=== PATIENT | female | born 1950 | race Caucasian/White ===

== ENCOUNTER 2020-02-17 09:01 | Outpatient (CLI) | payer MEDICARE, OTHER, SELFPAY ==
[2020-02-17 09:22] LABS: Basophils Absolute Auto 0.1 K/mm3 (0.0-0.1); Basophils Percent Auto 1.1 % (0.2-1.2); Eosinophils Absolute Auto 0.2 K/mm3 (0-0.3); Eosinophils Percent Auto 4.7 % (0-4.4); Hematocrit 39.5 % (37.0-47.0); Hemoglobin 12.9 g/dL (12.0-15.0); Immature Granulocyte Absolute 0.01 K/mm3 (0.00-0.031); Immature Granulocyte Percent A 0.2 % (0-0.5); Lymphocytes Absolute Auto 0.91 K/mm3 (0.9-3.2); Lymphocytes Percent Auto 20.4 % (18.3-44.2); Mean Corpuscular HGB Conc 32.7 g/dl (32-36); Mean Corpuscular Hemoglobin 31.8 pg (26-34); Mean Corpuscular Volume 97.3 fl (80-100); Mean Platelet Volume 9.4 fl (7.4-10.4); Monocytes Absolute Auto 0.6 K/mm3 (0.1-0.6); Neutrophils Absolute Auto 2.7 K/mm3 (1.3-6.7); Neutrophils Percent Auto 60.6 % (45.5-73.1); Platelet Count Result 228 k/mm3 (150-375); Red Blood Count 4.06 M/mm3 (4.2-5.4); Red Cell Distribution Width 13.2 % (11.5-14.5); White Blood Count 4.5 K/mm3 (4.5-10.0)
[2020-02-17 12:02] LABS: Alanine Aminotransferase 17 U/L (4-35); Albumin Level 4.5 g/dL (3.5-5.1); Alkaline Phosphatase 56 U/L (38-126); Aspartate Amino Transferase 28 U/L (14-36); Bilirubin,Total 0.9 mg/dL (0.2-1.3); Blood Urea Nitrogen 20 mg/dL (7-17); Calcium 9.5 mg/dL (8.4-10.2); Carbon Dioxide 26 mmol/L (22-30); Chloride 105 mmol/L (98-107); Cholesterol 167 mg/dL (0-200); Estimated Glomerular Filt Rate > 60; Glucose 89 mg/dL (65-105); HDL Direct 94 mg/dL; Potassium 4.4 mmol/L (3.4-5.0); Sodium 138 mmol/L (137-145); Triglycerides 66 mg/dL (<150)
[2020-02-17 12:13] LABS: LDL Cholesterol Direct 54 mg/dL
[2020-02-20 04:56] LABS: CA 27.29 15 U/mL (<38)
== END 2020-02-17 09:02 | disposition home or self-care (01) ==
PROVIDERS: Internal Medicine Hematology & Oncology; Visit Provider Family Medicine
DX: C50.412 Malignant neoplasm of upper-outer quadrant of left female breast (principal); Z17.0 Estrogen receptor positive status [ER+]; I10 Essential (primary) hypertension; E78.2 Mixed hyperlipidemia
CPT/HCPCS: 36415; 80053; 80061; 85025; 86300

== ENCOUNTER 2020-02-26 10:40 | Outpatient (CLI) | payer MEDICARE, OTHER, SELFPAY ==
--- NOTE | ~2020-02-26 | MM_ITS ---
EXAMINATION: MM screen RT diag LT w stephie HISTORY: Screening right and left diagnostic mammogram, history of left breast cancer TECHNIQUE: Craniocaudal and mediolateral oblique 3-D tomosynthesis images were obtained and synthetic 2-D images were generated. Mediolateral views of the left breast are also obtained. CAD analysis was submitted and interpreted. COMPARISON: 12/03/2018, 11/21/2018, 10/02/2016, 07/10/2014 BREAST PARENCHYMAL COMPOSITION: There are scattered areas of fibroglandular density. FINDINGS: There are lumpectomy changes in the upper outer quadrant of the left breast. There is no ev idence of suspicious mass, calcification, or architectural distortion to suggest malignancy in either breast. A portacatheter projects in the upper right breast. IMPRESSION: 1. Changes of interval lumpectomy in the left breast without mammographic evidence of malignancy. 2. Recommend routine screening mammography in one year and follow-up. BI-RADS Category 2: Benign finding(s). Reviewed, dictated and finalized at location A. IMPRESSION: 1. Changes of interval lumpectomy in the left breast without mammographic evide nce of malignancy. 2. Recommend routine screening mammography in one year and follow-up. BI-RADS Category 2: Benign finding(s).
== END 2020-02-26 10:41 | disposition home or self-care (01) ==
PROVIDERS: Visit Provider Internal Medicine Hematology & Oncology
DX: C50.412 Malignant neoplasm of upper-outer quadrant of left female breast (principal); Z17.0 Estrogen receptor positive status [ER+]; Z12.31 Encounter for screening mammogram for malignant neoplasm of breast
CPT/HCPCS: 77063; 77065; 77067

== ENCOUNTER 2020-03-09 12:54 | Outpatient (CLI) | payer MEDICARE, OTHER, SELFPAY ==
--- NOTE | ~2020-03-09 | DEXA_ITS ---
Bone Density Report Name: Felicitas Mcgovern Age: 69 Sex: Female Ethnicity: White Date of : 1950 Indication: osteopenia; monitoring treatment; cancer; asthma or emphysema; postmenopausal Referring Provider: TIMI RIVERA Study: Bone densitometry was performed. Exam Date: March 09, 2020 Accession number: [id number] Bone Density: Region BMD T-score Z-score Classification AP Spine (L1-L4) 0.921 -1.1 1.0 Osteopenia Femoral Neck (Left) 0.584 -2.4 -0.6 Osteopenia Total Hip (Left) 0.715 -1.9 -0.3 Osteopenia Total Hip Bilateral Avg 0.711 -1.9 -0.4 Osteopenia Femoral Neck (Right) 0.563 -2.6 -0.8 Osteoporosis Total Hip (Right) 0.707 -1.9 -0.4 Osteopenia World Health Organization criteria for BMD impression classify patients as: Normal (T-score at or above -1.0), Osteopenia (T-score between -1.0 and -2.5), or Osteoporosis (T-score at or below -2.5). 10-year Fracture Risk: FRAX not reported because: Some T-score for Spine Total or Hip Total or Femoral Neck at or below -2.5 Treated for osteoporosis Previous Exams: Region Exam Age BMD T-score BMD Change BMD Change Date g/cm2 vs Baseline vs Previous AP Spine(L1-L4) 03/09/2020 69 0.921 -1.1 -0.106(-10.3%) 0.043(4.9%)# 06/26/2013 62 0.878 -1.5 -0.149(-14.5%) -0.042(-4.6%)# 09/05/2010 59 0.920 -1.2 -0.107(-10.4%) -0.107(-10.4%) 04/27/2003 52 1.026 -0.2 Total Hip(Left) 03/09/2020 69 0.715 -1.9 -0.153(-17.6%) -0.007(-0.9%)# 06/26/2013 62 0.722 -1.8 -0.146(-16.9%) -0.064(-8.1%)# 09/05/2010 59 0.786 -1.3 -0.082(-9.5%)* -0.082(-9.5%)* 04/27/2003 52 0.868 -0.6 Total Hip(Right) 03/09/2020 69 0.707 -1.9 -0.130(-15.5%) 0.019(2.8%)# 06/26/2013 62 0.687 -2.1 -0.149(-17.9%) -0.061(-8.2%)# 09/05/2010 59 0.749 -1.6 -0.088(-10.5%) -0.088(-10.5%) 04/27/2003 52 0.837 -0.9 *Denotes significance at 95% confidence level, LSC for AP Spine = 0.022 g/cm2, LSC for Total Hip = 0.027 g/cm2 Clinical Information Provided by Patient: Is being treated for osteoporosis Has used the following medications: Boniva (i.e. ibandronate), Vitamin D, Calcium Has the following medical conditions: Asthma or Emphysema, Cancer Patient maximum height was 64 Menopause Age: 49 No regular weight bearing exercise Drinks caffeinated beverages Onset of menses at age 12 Number of children 2 Impression: The patient has osteoporosis, based on the Right Femoral Neck T-score. No signifi
== END 2020-03-09 12:55 | disposition home or self-care (01) ==
PROVIDERS: PCP Family Medicine; Visit Provider Family Medicine
DX: M81.0 Age-related osteoporosis without current pathological fracture (principal); M85.89 Other specified disorders of bone density and structure, multiple sites
CPT/HCPCS: 77080

== ENCOUNTER 2020-06-12 08:18 | Outpatient (CLI) | payer MEDICARE, OTHER, SELFPAY ==
--- NOTE | ~2020-06-12 | CT_ITS ---
EXAMINATION: CT lung screening EXAM DATE: 06/12/2020 08:54 INDICATION: Personal history of nicotine dependence. TECHNIQUE: Spiral low dose CT of the chest without contrast. Axial, coronal and sagittal images were reviewed. The dose-length product (DLP) for this examination was 60.02 mGy-cm. The exposure was ta ilored according to patient size (auto mA exposure control), and iterative reconstruction (ASIR) was used as additional dose reduction technique. Comparison is made to prior examination from 12/11/2017. FINDINGS: There is moderate emphysema and hyperinflation. Mild bronchiectasis. Calcified right lower lobe granuloma. Noncalcified 3 mm left upper lobe opacity on image #26. Tracheobronchial tree is pat ent. There is no mediastinal, hilar or axillary lymphadenopathy. Trace pericardial effusion. The re is no pneumothorax. Heart normal in size. There is mild coronary arterial calcification, arter ial sclerosis. Cholecystectomy clips and splenic granulomata. There is thoracic spondylosis without osteoblastic or osteolytic lesions identified. IMPRESSION: Lung-RADS category 2, benign appearance or behavior (<1% chance of malignancy); recommend continued LDCT screening in 1 year. Reviewed, dictated and finalized at location A.
== END 2020-06-12 08:19 | disposition home or self-care (01) ==
PROVIDERS: PCP Family Medicine; Visit Provider Internal Medicine Hematology & Oncology
DX: Z12.2 Encounter for screening for malignant neoplasm of respiratory organs (principal); Z87.891 Personal history of nicotine dependence
CPT/HCPCS: G0297

== ENCOUNTER 2020-06-25 12:08 | Outpatient (CLI) | payer MEDICARE, OTHER, SELFPAY ==
--- NOTE | ~2020-06-25 | MM_ITS ---
EXAMINATION: MM diagnostic leoncio LT w stephie HISTORY: History of left breast cancer TECHNIQUE: Additional 3-D tomosynthesis images of the left breast were performed and synthetic 2-D im ages were generated. CAD analysis was submitted and interpreted. COMPARISON: Comparison to multiple prior studies sequentially, with oldest reviewed study dated 11/2018. BREAST PARENCHYMAL COMPOSITION: Breast composed of scattered areas of fibroglandular density FINDINGS: There are stable lumpectomy changes in the upper outer quadrant of the left breast. No new masses, calcifications or architectural distortion in the left breast to suggest malignancy. IMPRESSION: 1. No mammographic evidence for malignancy. Stable left breast. 2. Routine yearly screening mammogram and regular clinical breast examination are recommended. BI-RADS Category 2: Benign finding(s). Reviewed, dictated and finalized at location A. STAY STITCHER IMPRESSION: 1. No mammographic evidence for malignancy. Stable left breast. 2. Routine yearly screening mammogram and regular clinical breast examination a re recommended. BI-RADS Category 2: Benign finding(s).
== END 2020-06-25 12:09 | disposition home or self-care (01) ==
LOC: ANHIMG 12:09
PROVIDERS: PCP Family Medicine; Visit Provider Nurse Practitioner Adult Health
DX: C50.912 Malignant neoplasm of unspecified site of left female breast (principal); N64.4 Mastodynia
CPT/HCPCS: 77061; 77065; G0279

== ENCOUNTER 2020-10-21 14:17 | Outpatient (CLI) | payer MEDICARE, OTHER, SELFPAY | END 2020-10-21 14:18 | disposition home or self-care (01) | LOC: ANHCOVIDVC 14:17 | PROVIDERS: PCP Family Medicine | DX: Z23 Encounter for immunization (principal) | CPT/HCPCS: 0001A; 91300 ==

== ENCOUNTER 2020-11-11 14:15 | Outpatient (CLI) | payer MEDICARE, OTHER, SELFPAY | END 2020-11-11 14:16 | disposition home or self-care (01) | LOC: ANHCOVIDVC 14:15 | PROVIDERS: PCP Family Medicine | DX: Z23 Encounter for immunization (principal) | CPT/HCPCS: 0002A; 91300 ==

== ENCOUNTER 2020-12-28 13:39 | Outpatient (CLI) | payer MEDICARE, OTHER, SELFPAY ==
--- NOTE | ~2020-12-28 | MM_ITS ---
EXAMINATION: MM diagnostic leoncio BI w stephie HISTORY: Left breast cancer TECHNIQUE: Craniocaudal, mediolateral, and mediolateral oblique 3-D tomosynthesis images of the breas ts were performed and synthetic 2-D images were generated. CAD analysis was submitted and interpreted . COMPARISON: 06/25/2020, 12/03/2018, 11/21/2018,10/02/2016, 09/21/2016 BREAST PARENCHYMAL COMPOSITION: The breasts are heterogeneously dense, which may obscure small masses . FINDINGS: Stable lumpectomy changes are present in the upper outer quadrant of the left breast. There is no suspicious mass, calcification, or architectural distortion in either breast. A right chest wa ll Port-A-Cath has been inserted. IMPRESSION: 1. No mammographic evidence of malignancy. 2. Recommend routine screening mammography in one year. BI-RADS Category 2: Benign finding(s). Reviewed, dictated and finalized at location A.
== END 2020-12-28 13:40 | disposition home or self-care (01) ==
PROVIDERS: PCP Family Medicine; Visit Provider Internal Medicine Hematology & Oncology
DX: Z09 Encounter for follow-up examination after completed treatment for conditions other than malignant neoplasm (principal); C50.919 Malignant neoplasm of unspecified site of unspecified female breast
CPT/HCPCS: 77062; 77066; G0279

== ENCOUNTER → 2021-01-10 03:37 | Outpatient (CLI) | payer MEDICARE, OTHER, SELFPAY ==
[2021-01-12 12:50] LABS: SARS-CoV-2 RNA PCR Negative
== END ==
PROVIDERS: PCP Family Medicine; Visit Provider Surgery
DX: Z01.812 Encounter for preprocedural laboratory examination (principal); Z20.822 Contact with and (suspected) exposure to COVID-19
CPT/HCPCS: C9803; U0003; U0005

== ENCOUNTER 2021-01-13 00:41 | Day surgery (SDC) | payer MEDICARE, OTHER, SELFPAY ==
[2021-01-05 14:18] VITALS: BMI 24.2
--- NOTE | 2021-01-13 07:36 | PM.IMHP ---
H&P: HPI History of Present Illness Date/Time: 01/13/21 07:36 Pt is a 70 y/o F s/p treatment of L breast cancer. Pt had R sided VAD placed approx 2 yrs ago. Pt reports she completed chemo about a yr ago. Pt denies any issues c port, and had it flushed as recently as a few wks ago. Chief Complaint: L breast cancer Review of Systems Review of Systems: All systems reviewed & are unremarkable except as noted in HPI and below PMFSH Past Medical History Medical History Anemia in neoplastic disease Breast cancer in female Chronic insomnia COPD (chronic obstructive pulmonary disease) Mixed hyperlipidemia Osteoporosis Pneumonia Surgical History Surgical History H/O dilation and curettage H/O left mastectomy H/O tubal ligation History of cholecystectomy S/P cataract surgery Family History Family History Father Patient's father is Family history of emphysema, Onset Age: 66 Mother Patient's mother is Liver cancer Other Breast cancer Sibling Acute myocardial infarction Social History Social History Social History: Smoking packs per day: 2 Smoking cigarettes per day: 40.0 Years smoked: 49 Smoking pack-years: 98.00 Smoking status: Former smoker Tobacco type: cigarettes Second hand tobacco smoke exposure: No Smoking end date: 06/01/13 Alcohol intake: never Substance use: never Substance use type: does not use Living arrangements: with family Gender identity (if verbalized by the patient): Female Spiritual care concerns: No Meds Home Medications and Allergies Home Medications Medication Instructions Recorded Confirmed Type cholecalciferol (vitamin D3) 50 mcg PO DAILY 06/24/19 01/05/21 History [Vitamin D3] alendronate 70 mg tablet 70 mg PO WEEKLY #14 tablet 03/17/20 01/05/21 Rx rosuvastatin 10 mg tablet 10 mg PO DAILY #90 tablet 07/29/20 01/05/21 Rx fluticasone fur. 100 mcg-umeclid See Rx Instructions .ROUTE 11/18/20 01/05/21 Rx 62.5 mcg-vilant 25 mcg .COMPLEX #60 disk inhalat.powder losartan 25 mg tablet 25 mg PO DAILY #30 tablet 11/30/20 01/05/21 Rx trazodone 25 mg PO HS 01/05/21 01/05/21 History Allergies Allergy/AdvReac Type Severity Reaction Status Date / Time No Known Allergies Allergy Verified 01/07/21 09:45 Exam Const: General: cooperative, comfortable and no acute distress Chest: Other: R sided VAD - C/D/I Resp: Effort & Inspection: normal respiratory effort Auscultation: clear to auscultation bilaterally Cardio: Rate: regular rate Rhythm: regular rhythm Assessment and Plan Assessment and plan (1) Breast cancer in female: Code(s): C50.919 - Malignant neoplasm of unspecified site of unspecified female breast Status: Acute Assessment and Plan: s/p treatment c long dz free interval, will remove VAD in OR today
--- NOTE | 2021-01-13 07:40 | WPDHPUPDATE1 ---
History and Physical Update Update Date/Time: 01/13/21 07:40 History and Physical has been reviewed, including an updated exam of the patient. There are NO changes in the patient's condition. Risks, benefits, and alternatives have been discussed and questions answered. Patient agrees to proceed with procedure.
[2021-01-13] MEDS: LACTATED RINGERS 1,000 ML 30 ML IV CONT (08:13)
[2021-01-13 08:15] VITALS: BP 122/58; PULSE 71; RESP 16; TEMP 36.8; O2SAT 97
--- NOTE | 2021-01-13 08:17 | WPDANESEPPF ---
Anes - Initial Pre Proc Eval Procedure: Operation Date: 01/13/21 09:00 Proposed Procedures p Removal Mari Cath - Shanell Monreal MD Date/Time: 01/13/21 08:17 Surgeon: Shanell Monreal MD Pre Op Diagnosis: triple mag. negative neoplasm breast Patient Data Age: 70 Gender: F Height: 5 ft 4 in Weight: 63 kg Last Vital Signs Temp 36.8 C 01/13/21 08:15 Pulse 71 01/13/21 08:15 Resp 16 01/13/21 08:15 BP 122/58 L 01/13/21 08:15 Pulse Ox 97 01/13/21 08:15 Allergies Allergy/AdvReac Type Severity Reaction Status Date / Time No Known Allergies Allergy Verified 01/07/21 09:45 Home Medications Medication Instructions Recorded Confirmed Type cholecalciferol (vitamin D3) 50 mcg PO DAILY 06/24/19 01/13/21 History [Vitamin D3] alendronate 70 mg tablet 70 mg PO WEEKLY #14 tablet 03/17/20 01/13/21 Rx rosuvastatin 10 mg tablet 10 mg PO DAILY #90 tablet 07/29/20 01/13/21 Rx fluticasone fur. 100 mcg-umeclid See Rx Instructions .ROUTE 11/18/20 01/13/21 Rx 62.5 mcg-vilant 25 mcg .COMPLEX #60 disk inhalat.powder losartan 25 mg tablet 25 mg PO DAILY #30 tablet 11/30/20 01/13/21 Rx trazodone 25 mg PO HS 01/05/21 01/13/21 History Patient hx anesthesia problems: none Family hx anesthesia problems: none PMFSH Past Medical History Medical History Anemia in neoplastic disease Breast cancer in female Chronic insomnia COPD (chronic obstructive pulmonary disease) Mixed hyperlipidemia Osteoporosis Pneumonia Surgical History Surgical History H/O dilation and curettage H/O left mastectomy H/O tubal ligation History of cholecystectomy S/P cataract surgery Family History Family History Father Patient's father is Family history of emphysema, Onset Age: 66 Mother Patient's mother is Liver cancer Other Breast cancer Sibling Acute myocardial infarction Social History Social History Social History: Smoking packs per day: 2 Smoking cigarettes per day: 40.0 Years smoked: 49 Smoking pack-years: 98.00 Smoking status: Former smoker Tobacco type: cigarettes Second hand tobacco smoke exposure: No Smoking end date: 06/01/13 Alcohol intake: never Substance use: never Substance use type: does not use Living arrangements: with family Gender identity (if verbalized by the patient): Female Spiritual care concerns: No Anes - Eval Final PreProcedure Day of Procedure 01/13/21 08:17 Patient weight: normal Heart: regular rate and rhythm Lungs: clear to auscultation Airway: Mallampati scale class III Neurological: alert and oriented Last oral intake: >/= 8 hours ASA classification: III Emergent: no Anesthetic plan: proceed Anesthesia type and monitoring: general GIVS and standard monitoring Informed Consent: The patient's anesthetic plan and its attendant risks and benefits were discussed with the patient/family/POA. Questions were solicited and answers provided to the satisfaction of the patient/family/POA.
[2021-01-13] MEDS: ceFAZolin 2 GM/D5W 50 ML 2 GM/50 ML BAG IVPB (08:51)
[2021-01-13] MEDS: BUPIVACAINE/EPINEPHRINE 0.5% 30 ML VIAL 50 ML INFILTRATE (09:11)
--- NOTE | 2021-01-13 09:15 | P.OP_ITS ---
Procedure Note - Detailed Date of procedure: 01/13/21 Pre-op diagnosis: triple mag. negative neoplasm breast Post-op diagnosis: same Procedure performed: Removal right chest venous access device Description of procedure: The patient was taken to the operating room placed in the supine position. After adequate induction of MAC anesthesia, the patient was prepped and draped in the normal sterile fashion. A time-out was then done to verify the patient's identity, as well as the procedure being performed. I began by localizing the previous incision line in the right chest and around the port itself. Once this was done, I made an incision through the old incision to the level of the port. I then bluntly dissected around the port, and located the 2 sutures holding the port in place. I then cut the 2 sutures and removed the port from the pocket. I was then able to remove the port and catheter in full. The catheter was noted in the right internal jugular vein. I then held pressure at the level of the right IJ vein for approximately 5 minutes. Hemostasis was noted after pressure was held. I then localized the pocket further and closed the subcutaneous tissue with 3 0 Vicryl suture. I then closed the skin with 4 O Monocryl subcuticular suture. Dermabond was then placed on the wound. The patient tolerated the procedure well, was alert and awake in the operating room postoperatively, and will be transferred to the [facility] in stable condition. Implants: none Anesthesia: MAC and local Surgeon: Shanell Monreal MD Estimated blood loss (mL): 5 Drains: No Packing: No Pathology: none sent Complications: No immediate complications Condition: stable Disposition: PACU Findings: right-sided VAD
[2021-01-13 09:32] VITALS: BP 114/59; PULSE 83; RESP 16; O2SAT 99
[2021-01-13 10:00] VITALS: BP 155/69; PULSE 73; RESP 16; O2SAT 96
[2021-01-13] MEDS: fentaNYL CITRATE INJ (*CRX) 100 MCG/2 ML VIAL 25 MCG IV PUSH (10:06)
[2021-01-13] MEDS: oxyCODONE HCL (*CRX) 5 MG TAB IR PO (10:29)
[2021-01-13 10:30] VITALS: BP 138/67; PULSE 76; RESP 16
== END 2021-01-13 10:53 | disposition home or self-care (01) ==
PROVIDERS: PCP Family Medicine; Visit Provider Surgery
PROC: (CPT 36589; principal; 2021-01-13 09:00)
DX: Z45.2 Encounter for adjustment and management of vascular access device (principal); J44.9 Chronic obstructive pulmonary disease, unspecified; E78.2 Mixed hyperlipidemia; M81.0 Age-related osteoporosis without current pathological fracture; Z85.3 Personal history of malignant neoplasm of breast; Z87.891 Personal history of nicotine dependence; Z92.21 Personal history of antineoplastic chemotherapy
CPT/HCPCS: 36590; A9270; J0690; J2704; J3010; J7120

== ENCOUNTER → 2021-07-04 10:33 | Outpatient (CLI) | payer MEDICARE, OTHER, SELFPAY ==
--- NOTE | ~2021-07-04 | CT_ITS ---
EXAMINATION: CT lung screening EXAM DATE: 07/04/2021 11:14 INDICATION: Z87.891 - Personal history of nicotine dependence. TECHNIQUE: Spiral low dose CT of the chest without contrast. Axial, coronal and sagittal images were reviewed. The dose-length product (DLP) for this examination was 44.79 mGy-cm. The exposure was ta ilored according to patient size (auto mA exposure control), and iterative reconstruction (ASIR) was used as additional dose reduction technique. Comparison is made to prior examination from 06/12/2020. FINDINGS: There is mild to moderate emphysema and hyperinflation. There is right lower lobe calcifie d granuloma. Tracheobronchial tree is patent. There is no mediastinal, hilar or axillary lymphaden opathy. There are no pleural or pericardial effusions. There is no pneumothorax. Heart normal i n size. There is mild coronary arterial calcification, arterial sclerosis. There are cholecystectom y clips. There is thoracic spondylosis without osteoblastic or osteolytic lesions identified. IMPRESSION: Lung-RADS category 1, negative (<1%chance of malignancy); recommend continued LDCT screen ing in 1 year. Reviewed, dictated and finalized at location B. NCT LECTURER IMPRESSION: Lung-RADS category 1, negative (<1%chance of malignancy); recommend continued LDCT screening in 1 year.
== END ==
PROVIDERS: PCP Family Medicine; Visit Provider Nurse Practitioner Gerontology
DX: Z12.2 Encounter for screening for malignant neoplasm of respiratory organs (principal); Z87.891 Personal history of nicotine dependence
CPT/HCPCS: 71271

== ENCOUNTER 2021-08-08 09:57 | Outpatient (CLI) | payer MEDICARE, OTHER, SELFPAY ==
--- NOTE | 2021-08-08 13:00 | WPDPFTINT ---
PFT Procedure Performed PFT Procedure Performed Spirometry with Pre/Post Bronchodilator Plethysmography (Lung Vol) Diffusing Cap (DLCO) Flow Vol Loop PFT Interpretation This is a pulmonary function test with pre and post-bronchodilator spirometry, plethysmography and diffusing capacity. The test was performed and results interpreted in accordance with the 2019 and 2005 ATS/ERS Task Force guidelines respectively using the Global Lung Function Initiative-2012 reference equations. Patient demonstrated good effort and cooperation. Reproducibility criteria were met. The quality of the pre bronchodilator spirometry maneuver was Grade A and post bronchodilator spirometry maneuver was Grade A. Findings: Spirometry: there is decreased maximal expiratory airflow at all lung volumes with concave expiratory flow tracing. The contour the inspiratory flow tracing is normal. The pre bronchodilator FVC is 2.53 L, 94% predicted. The pre bronchodilator FEV1 is 0.71 L, 37% predicted. The FEV1: FVC ratio is 28%. The post bronchodilator FVC is 2.25 L, representing an 11% decrease. The post bronchodilator FEV1 is 0.74 L, rep representing a 5% increase. The post bronchodilator FEV1: FVC ratio is 33%. Plethysmography: The total lung capacity is 5.66 L, 123% predicted. The functional residual capacity is 4.37 L, 161% predicted. The residual volume is 3.13 L, 168% predicted. Diffusing capacity: The absolute diffusion capacity is 6.6, 38% predicted. The diffusing capacity corrected for alveolar volume is 2.44, 68% predicted. Impression: There is a severe obstructive abnormality without significant improvement after inhaling a single dose of albuterol. The increase in residual volume is consistent with air trapping from an obstructive abnormality. Hyperinflation is present is demonstrated by the increase in functional residual capacity and total lung capacity and is consistent with an obstructive abnormality. The absolute diffusing capacity is severely decreased and normalizes when corrected for alveolar volume. There are no prior studies for comparison
== END 2021-08-08 09:58 | disposition home or self-care (01) ==
LOC: ANHPFT 09:59
PROVIDERS: PCP Family Medicine; Visit Provider Nurse Practitioner Gerontology
DX: J44.9 Chronic obstructive pulmonary disease, unspecified (principal)
CPT/HCPCS: 94060; 94726; 94729

== ENCOUNTER 2021-08-23 12:49 | Outpatient (CLI) | payer MEDICARE, OTHER, SELFPAY ==
[2021-08-23 13:19] LABS: Basophils Absolute Auto 0.1 K/mm3 (0.0-0.1); Basophils Percent Auto 0.9 % (0.2-1.2); Eosinophils Absolute Auto 0.1 K/mm3 (0-0.3); Eosinophils Percent Auto 2.2 % (0-4.4); Hematocrit 42.8 % (37.0-47.0); Hemoglobin 13.5 g/dL (12.0-15.0); Immature Granulocyte Absolute 0.02 K/mm3 (0.00-0.031); Immature Granulocyte Percent A 0.3 % (0-0.5); Lymphocytes Absolute Auto 1.12 K/mm3 (0.9-3.2); Lymphocytes Percent Auto 17.6 % (18.3-44.2); Mean Corpuscular HGB Conc 31.5 g/dl (32-36); Mean Corpuscular Hemoglobin 31.7 pg (26-34); Mean Corpuscular Volume 100.5 fl (80-100); Mean Platelet Volume 9.2 fl (7.4-10.4); Monocytes Absolute Auto 0.5 K/mm3 (0.1-0.6); Neutrophils Absolute Auto 4.5 K/mm3 (1.3-6.7); Platelet Count Result 286 k/mm3 (150-375); Red Blood Count 4.26 M/mm3 (4.2-5.4); Red Cell Distribution Width 13.5 % (11.5-14.5); White Blood Count 6.4 K/mm3 (4.5-10.0)
[2021-08-23 15:58] LABS: Alanine Aminotransferase 15 U/L (4-35); Albumin Level 4.6 g/dL (3.5-5.1); Alkaline Phosphatase 57 U/L (38-126); Anion Gap 11 mmol/L (8-16); Aspartate Amino Transferase 34 U/L (14-36); Bilirubin,Total 0.9 mg/dL (0.2-1.3); Blood Urea Nitrogen 13 mg/dL (7-17); Calcium 9.5 mg/dL (8.4-10.2); Carbon Dioxide 28 mmol/L (22-30); Chloride 102 mmol/L (98-107); Estimated Glomerular Filt Rate > 60; Glucose 99 mg/dL (65-110); Potassium 4.2 mmol/L (3.4-5.0); Sodium 141 mmol/L (137-145)
[2021-08-26 13:27] LABS: CA 15-3 8 U/mL (<32)
== END 2021-08-23 12:50 | disposition home or self-care (01) ==
PROVIDERS: PCP Family Medicine; Visit Provider Internal Medicine Hematology & Oncology
DX: C50.919 Malignant neoplasm of unspecified site of unspecified female breast (principal)
CPT/HCPCS: 36415; 80053; 85025; 86300

== ENCOUNTER 2021-09-01 11:11 | Outpatient (CLI) | payer MEDICARE, OTHER, SELFPAY ==
--- NOTE | ~2021-09-01 | XR_ITS ---
EXAMINATION: XR chest 2V EXAM DATE: 09/01/2021 11:34 INDICATION: R06.02 - Shortness of breath, decreased right-sided lung sounds. TECHNIQUE: Frontal and lateral projections of the chest obtained and reviewed. Comparison is made to prior examination from 04/29/2019. FINDINGS: The lungs are hyperinflated which can be seen with chronic obstructive pulmonary disease (a clinical diagnosis of functional impairment), but is not diagnostic of it. Right midlung zone granul ray. The lungs are otherwise clear. There are no pleural effusions. The cardiomediastinal silhouett e is within normal limits. There is no pneumothorax suspected. Old left lower rib fracture. Resolut ion of previously seen right-sided airspace disease and pleural effusion. IMPRESSION: 1. No acute cardiopulmonary findings. 2. Hyperinflation. Reviewed, dictated and finalized at location A. CAPTAIN
== END 2021-09-01 11:12 | disposition home or self-care (01) ==
PROVIDERS: PCP Family Medicine; Visit Provider Family Medicine
DX: R06.02 Shortness of breath (principal); R91.8 Other nonspecific abnormal finding of lung field
CPT/HCPCS: 71046

== ENCOUNTER 2022-01-06 11:32 | Outpatient (CLI) | payer MEDICARE, OTHER, SELFPAY ==
--- NOTE | ~2022-01-06 | MM_ITS ---
EXAMINATION: MM diagnostic leoncio BI w stephie HISTORY: History of left breast cancer TECHNIQUE: Craniocaudal, mediolateral, and mediolateral oblique 3-D tomosynthesis images of the breas ts were performed and synthetic 2-D images were generated. CAD analysis was submitted and interpreted . COMPARISON: 12/28/2020, 06/25/2020, 12/03/2018, 11/21/2018 BREAST PARENCHYMAL COMPOSITION: There are scattered areas of fibroglandular density. FINDINGS: Lumpectomy changes are present in the upper outer quadrant of the left breast. There is no suspicious mass, calcification, or architectural distortion in either breast to suggest malignancy. There has been no suspicious interval change. IMPRESSION: 1. No mammographic evidence of malignancy. 2. Recommend routine screening mammography in one year. BI-RADS Category 2: Benign finding(s). Reviewed, dictated and finalized at location A.
== END 2022-01-06 11:33 | disposition home or self-care (01) ==
LOC: ANHIMG 11:33
PROVIDERS: PCP Family Medicine; Visit Provider Internal Medicine Hematology & Oncology
DX: C50.912 Malignant neoplasm of unspecified site of left female breast (principal); Z17.1 Estrogen receptor negative status [ER-]; Z90.12 Acquired absence of left breast and nipple; R92.8 Other abnormal and inconclusive findings on diagnostic imaging of breast
CPT/HCPCS: 77062; 77066; G0279

== ENCOUNTER 2023-01-08 08:40 | Outpatient (CLI) | payer MEDICARE, OTHER, SELFPAY ==
--- NOTE | ~2023-01-08 | MM_ITS ---
EXAMINATION: MM screening leoncio BI w stephie HISTORY: Screening mammogram, history of left breast cancer TECHNIQUE: Craniocaudal and mediolateral oblique 3-D tomosynthesis images were obtained and synthetic 2-D images were generated. CAD analysis was submitted and interpreted. COMPARISON: 01/06/2022, 12/28/2020, 06/25/2020 BREAST PARENCHYMAL COMPOSITION: There are scattered areas of fibroglandular density. FINDINGS: There are stable lumpectomy changes of left breast. No suspicious mass, calcification, or a rchitectural distortion are identified in either breast to suggest malignancy. There has been no susp icious interval change. IMPRESSION: 1. No mammographic evidence of malignancy. 2. Recommend routine screening mammography in one year. BI-RADS Category 2: Benign finding(s). Reviewed, dictated and finalized at location A.
== END 2023-01-08 08:41 | disposition home or self-care (01) ==
LOC: ANHIMG 08:44
PROVIDERS: PCP Family Medicine; Visit Provider Internal Medicine Hematology & Oncology
DX: Z12.31 Encounter for screening mammogram for malignant neoplasm of breast (principal)
CPT/HCPCS: 36415; 77063; 77067; 80053; 85025; 86300

== ENCOUNTER 2023-04-17 07:39 | Outpatient (CLI) | payer MEDICARE, OTHER, SELFPAY ==
--- NOTE | ~2023-04-17 | CT_ITS ---
CT Scan of the Chest without Contrast: Clinical Indication: Lung cancer screening, personal history of nicotine dependence Technique: Contiguous sections were acquired throughout the chest without intravenous contrast. Dose reduction technique was used on this scan by utilizing automated exposure control and iterative recon struction technique. The dose-length product (DLP) was 65.52 mGy-cm. COMPARISON: 07/04/2021 Findings: There is no evidence of any significant mediastinal, hilar or axillary lymphadenopathy. The mediastin al soft tissues appear normal. There is no evidence of pleural or pericardial effusion. 3 mm right middle lobe pulmonary nodule noted. Calcified right lower lobe granuloma present. Several 2 mm nodules are present at the left lung base. 4 mm nodule noted in the superior segment left lower lobe. 5 mm left apical pulmonary nodule noted (axial image 30). Images through the upper abdomen reveal no abnormalities. Impression: Lung RADS 2: Benign appearance. 12 month follow-up screening CT advised. Reviewed, dictated and finalized at [facility]. Impression: Lung RADS 2: Benign appearance. 12 month follow-up screening CT advised.
== END 2023-04-17 07:40 | disposition home or self-care (01) ==
PROVIDERS: PCP Family Medicine; Visit Provider Family Medicine
DX: Z12.2 Encounter for screening for malignant neoplasm of respiratory organs (principal); Z87.891 Personal history of nicotine dependence
CPT/HCPCS: 71271

== ENCOUNTER 2023-05-21 14:33 | Outpatient (CLI) | payer MEDICARE, OTHER, SELFPAY ==
[2023-05-21 15:00] VITALS: PULSE 85; O2SAT 92
[2023-05-21 15:03] VITALS: PULSE 99; O2SAT 85
[2023-05-21 15:04] VITALS: O2SAT 86
[2023-05-21 15:05] VITALS: PULSE 93; O2SAT 90
[2023-05-21 15:15] VITALS: PULSE 86; O2SAT 93
[2023-05-21 15:21] LABS: Alveolar/Arterial O2 Gradient 46.7 mmHg; Base Excess ABG 0.5 mEq/l (+/-2.0); Fractional Inspired Oxygen 21 %; HCO3 ABG 24.2 mEq/l (22.0-26.0); Oxygen Content ABG 17.3 %vol (16.0-22.0); Oxygen Saturation ABG 92.1 % (95.0-100.0); Oxyhemoglobin 90.7 % THb (90.0-100.0); PO2 ABG 59.9 mmHg (80.0-100.0); PO2 FiO2 Ratio Arterial Blood 2.85 %; Total Hemoglobin 13.6 g/dL (12.0-18.0); pH ABG 7.445 (7.350-7.450)
[2023-05-21 15:22] LABS: Device ROOM AIR; Site Drawn RIGHT BRACHIAL
--- NOTE | 2023-05-21 15:39 | HOMEO2EVAL ---
Evaluation was performed at [facility] Home Oxygen Evaluation RC: Home Oxygen (O2) Evaluation Start: 05/21/23 15:33 Freq: Status: Active Protocol: RPE Activity Type Activity Date Activity User E-sign Co-sign Detail Recorded Client Recorded Date Recorded By Document 05/21/23 15:00 [email or web address] 05/21/23 15:38 NARCISO Document 05/21/23 15:03 [email or web address] 05/21/23 15:38 NARCISO Document 05/21/23 15:04 [email or web address] 05/21/23 15:38 NARCISO Document 05/21/23 15:05 [email or web address] 05/21/23 15:38 NARCISO Document 05/21/23 15:15 [email or web address] 05/21/23 15:38 NARCISO 05/21/23 05/21/23 05/21/23 15:00 15:03 15:04 Home O2 Evaluation [Oxygen] -Test Phase Resting Exercise Exercise -Oxygen Delivery Room Air Room Air Nasal Cannula -Oxygen Flow Rate (L/min) 1 [Pulse Oximetry] -Pulse Oximetry (90-100 %) 92 85 L 86 L [Pulse Rate] -Pulse Rate (60-100 beats/min) 85 99 [Evaluation] -Activity Tolerance [Comments] -Home Oxygen Evaluation Comments [Charges] -Treatment Charges O2 Evaluation - Outpatient 05/21/23 05/21/23 15:05 15:15 Home O2 Evaluation [Oxygen] -Test Phase Exercise Resting -Oxygen Delivery Nasal Cannula Room Air -Oxygen Flow Rate (L/min) 2 [Pulse Oximetry] -Pulse Oximetry (90-100 %) 90 93 [Pulse Rate] -Pulse Rate (60-100 beats/min) 93 86 [Evaluation] -Activity Tolerance Good [Comments] -Home Oxygen Evaluation Comments Pt requires 2 L home O2 with activity/ exertion [Charges] -Treatment Charges
--- NOTE | 2023-05-22 12:28 | WPDPFTINT ---
PFT Procedure Performed PFT Procedure Performed Spirometry with Pre/Post Bronchodilator Plethysmography (Lung Vol) Diffusing Cap (DLCO) Flow Vol Loop PFT Interpretation Lung volumes were measured with the body plethysmography method. The elevated FRC and RV are indicative of air trapping. Spirometry showed diminished expiratory flow rates and a diminished FEV1 to FVC ratio 29%, indicative of obstructive airway disease. Following administration of a bronchodilator there was no significant increase in the expiratory flow rates. Lung diffusion capacity is severely reduced at 27% predicted. The flow-volume loop is consistent with severe emphysema. In comparison to previous study in 2020, the post bronchodilator FVC is unchanged, whereas the FEV1 is now lower by approximately 0.15 L. Impression: Very severe obstructive airway disease with evidence of air trapping and no response to bronchodilators on this testing. Severely reduced lung diffusion capacity.
== END 2023-05-21 14:34 | disposition home or self-care (01) ==
LOC: ANHPFT 14:34
PROVIDERS: PCP Family Medicine; Visit Provider Internal Medicine Pulmonary Disease
DX: J44.9 Chronic obstructive pulmonary disease, unspecified (principal); Z87.891 Personal history of nicotine dependence
CPT/HCPCS: 36600; 82805; 94060; 94618; 94726; 94729

== ENCOUNTER 2024-01-11 09:02 | Outpatient (CLI) | payer MEDICARE, OTHER, SELFPAY ==
--- NOTE | ~2024-01-11 | MM_ITS ---
EXAMINATION: MM screening leoncio BI w stephie HISTORY: Screening mammogram TECHNIQUE: Craniocaudal and mediolateral oblique 3-D tomosynthesis images were obtained and synthetic 2-D images were generated. CAD analysis was submitted and interpreted. COMPARISON: 01/08/2023 bilateral screening mammogram 01/06/2022 diagnostic bilateral mammogram 12/28/2020 diagnostic bilateral mammogram 06/25/2020 left mammogram 09/21/2016 bilateral screening mammogram BREAST PARENCHYMAL COMPOSITION: There are scattered areas of fibroglandular density. FINDINGS: Status post left partial mastectomy for malignancy in 2019. There is no evidence of suspic ious mass, calcification, or architectural distortion to suggest malignancy in either breast. There h as been no suspicious interval change. IMPRESSION: 1. Status post left partial mastectomy for breast cancer. No mammographic evidence of malignancy. 2. Recommend routine screening mammography in one year. BI-RADS Category 2: Benign finding(s). Reviewed, dictated and finalized at location B. IMPRESSION: 1. Status post left partial mastectomy for breast cancer. No mammographic evid ence of malignancy. 2. Recommend routine screening mammography in one year. BI-RADS Category 2: Benign finding(s).
== END 2024-01-11 09:03 | disposition home or self-care (01) ==
LOC: ANHIMG 09:06
PROVIDERS: PCP Family Medicine; Visit Provider Internal Medicine Hematology & Oncology
DX: Z12.31 Encounter for screening mammogram for malignant neoplasm of breast (principal); Z90.12 Acquired absence of left breast and nipple; Z85.3 Personal history of malignant neoplasm of breast
CPT/HCPCS: 77063; 77067

== ENCOUNTER 2024-02-08 08:21 | Outpatient (CLI) | payer MEDICARE, OTHER, SELFPAY ==
[2024-02-08 08:40] LABS: Basophils Absolute Auto 0.1 K/mm3 (0.0-0.1); Basophils Percent Auto 1.3 % (0.2-1.2); Eosinophils Absolute Auto 0.3 K/mm3 (0-0.3); Eosinophils Percent Auto 6.2 % (0-4.4); Hematocrit 42.6 % (37.0-47.0); Hemoglobin 14.1 g/dL (12.0-15.0); Immature Granulocyte Absolute 0.01 K/mm3 (0.00-0.031); Immature Granulocyte Percent A 0.2 % (0-0.5); Lymphocytes Absolute Auto 1.05 K/mm3 (0.9-3.2); Lymphocytes Percent Auto 19.7 % (18.3-44.2); Mean Corpuscular HGB Conc 33.1 g/dl (32-36); Mean Corpuscular Hemoglobin 30.9 pg (26-34); Mean Corpuscular Volume 93.4 fl (80-100); Mean Platelet Volume 8.8 fl (7.4-10.4); Monocytes Absolute Auto 0.5 K/mm3 (0.1-0.6); Monocytes Percent Auto 9.4 % (2.6-8.5); Neutrophils Absolute Auto 3.4 K/mm3 (1.3-6.7); Neutrophils Percent Auto 63.2 % (45.5-73.1); Platelet Count Result 293 k/mm3 (150-375); Red Blood Count 4.56 M/mm3 (4.2-5.4); Red Cell Distribution Width 13.1 % (11.5-14.5); White Blood Count 5.3 K/mm3 (4.5-10.0)
[2024-02-08 12:25] LABS: Alanine Aminotransferase 18 U/L (6-35); Albumin Level 4.9 g/dL (3.5-5.1); Alkaline Phosphatase 61 U/L (38-126); Anion Gap 8 mmol/L (4-12); Aspartate Amino Transferase 28 U/L (14-36); Bilirubin,Total 1.1 mg/dL (0.2-1.3); Blood Urea Nitrogen 14 mg/dL (7-17); Calcium 9.6 mg/dL (8.4-10.2); Carbon Dioxide 28 mmol/L (22-30); Chloride 100 mmol/L (98-107); Estimated Glomerular Filt Rate > 60; Glucose 87 mg/dL (65-110); Potassium 4.4 mmol/L (3.4-5.0); Sodium 136 mmol/L (137-145)
[2024-02-12 07:23] LABS: CA 15-3 9 U/mL (<32)
== END 2024-02-08 08:22 | disposition home or self-care (01) ==
LOC: ANHLAB 08:24
PROVIDERS: PCP Family Medicine; Visit Provider Internal Medicine Hematology & Oncology
DX: C50.919 Malignant neoplasm of unspecified site of unspecified female breast (principal)
CPT/HCPCS: 36415; 80053; 85025; 86300

== ENCOUNTER 2024-03-22 21:49 | Observation (INO) | payer MEDICARE, OTHER, SELFPAY ==
[2024-03-22] VITALS (8 sets, daily range): BP systolic 141–168; BP diastolic 75–92; PULSE 75–98; RESP 14–30; TEMP 36.6; O2SAT 92–99
--- NOTE | ~2024-03-22 | XR_ITS ---
Portable chest x-ray Comparison: 09/01/2021 Clinical History: Shortness of breath Findings: Lungs are clear, without focal consolidation or pleural effusion. Suspected COPD. Cardiom ediastinal silhouette is stable. Bones and soft tissues are unremarkable. Impression: COPD. Reviewed, dictated and finalized at location . Impression: COPD.
--- NOTE | 2024-03-22 22:04 | ECG_ITS ---
Test Date: 2024-03-22 22:13:17 Measurements Intervals [place] Rate: 75 P: 75 IL: 173 QRS: 42 QRSD: 70 T: 52 QT: 357 QTc: 399 Interpretive Statements SINUS RHYTHM NORMAL ECG No previous ECG available for comparison Electronically Signed On 03-23-2024 09:03:03 CDT by Kings Alberto M.D.
[2024-03-22 22:32] LABS: Basophils Absolute Auto 0.1 K/mm3 (0.0-0.1); Basophils Percent Auto 1.1 % (0.2-1.2); Eosinophils Absolute Auto 0.3 K/mm3 (0-0.3); Eosinophils Percent Auto 3.7 % (0-4.4); Hematocrit 37.1 % (37.0-47.0); Hemoglobin 12.8 g/dL (12.0-15.0); Immature Granulocyte Absolute 0.03 K/mm3 (0.00-0.031); Immature Granulocyte Percent A 0.4 % (0-0.5); Lymphocytes Absolute Auto 1.12 K/mm3 (0.9-3.2); Lymphocytes Percent Auto 13.7 % (18.3-44.2); Mean Corpuscular HGB Conc 34.5 g/dl (32-36); Mean Corpuscular Hemoglobin 32.1 pg (26-34); Mean Platelet Volume 8.8 fl (7.4-10.4); Monocytes Absolute Auto 0.8 K/mm3 (0.1-0.6); Monocytes Percent Auto 10.2 % (2.6-8.5); Neutrophils Absolute Auto 5.8 K/mm3 (1.3-6.7); Neutrophils Percent Auto 70.9 % (45.5-73.1); Platelet Count Result 307 k/mm3 (150-375); Red Blood Count 3.99 M/mm3 (4.2-5.4); Red Cell Distribution Width 13.2 % (11.5-14.5); White Blood Count 8.2 K/mm3 (4.5-10.0)
--- NOTE | 2024-03-22 22:43 | ED.GENADULT ---
HPI - General Adult General Chief complaint: Shortness of Breath/Dyspnea Stated complaint: sob Time Seen by Provider: 03/22/24 22:03 History of Present Illness HPI narrative: Felicitas Mcgovern is a 73 y/o female with PMx of COPD who presents with worsening SOB that started today. She denies any chest pain/ worsening cough or fever. She states that she typically wears O2 at bedtime but needed it during the day today. Related Data Home Medications Medication Instructions Recorded Confirmed pravastatin 20 mg tablet 20 mg PO DAILY 03/23/24 03/23/24 Allergies Allergy/AdvReac Type Severity Reaction Status Date / Time No Known Allergies Allergy Verified 03/22/24 22:00 Review of Systems Review of Systems: CONSTITUTIONAL: Denies fever, chills, or sweats. EYES: Denies visual changes, redness, or discharge. ENT: Denies rhinorrhea, congestion, sore throat, or otalgia. CARDIOVASCULAR: Denies chest pain, palpitations, or edema. RESPIRATORY: Reports increased SOB that started today GASTROINTESTINAL: Denies abdominal pain, nausea, vomiting, or diarrhea. GENITOURINARY: Denies dysuria or hematuria. SKIN: Denies rash or itching. MUSCULOSKELETAL: Denies back pain, joint pain, or myalgia. NEUROLOGIC: Denies headache, numbness, dizziness, or weakness. PSYCHIATRIC: Denies anxiety or depression. [facility] Past Medical History Medical History Abnormal mammogram of left breast Alcohol abuse, uncomplicated Anemia in neoplastic disease Breast cancer in female Breast screening Chronic insomnia Chronic obstructive pulmonary disease, unspecified COPD (chronic obstructive pulmonary disease) COPD with acute exacerbation Estrogen receptor negative status [ER-] History of alcoholism History of nicotine use Insomnia, unspecified Left breast mass Mixed hyperlipidemia Mixed hyperlipidemia Osteoporosis Pericardial effusion Pneumonia Pneumonia of right upper lobe due to infectious organism Poor appetite Postmenopausal Psychophysiological insomnia Pulmonary nodules SOB (shortness of breath) Weakness Surgical History Surgical History H/O dilation and curettage H/O left mastectomy H/O tubal ligation History of cholecystectomy S/P cataract surgery Family History Family History Father Patient's father is Family history of emphysema, Onset Age: 66 Mother Patient's mother is Liver cancer Other Breast cancer Sibling Acute myocardial infarction Social History Social History Social History: Smoking packs per day: 2 Smoking cigarettes per day: 40.0 Years smoked: 49 Smoking pack-years: 98.00 Smoking status: Former smoker Tobacco type: cigarettes Second hand tobacco smoke exposure: No Smoking end date: 06/01/13 Alcohol intake: never Substance use: never Substance use type: does not use Lack of Transportation: No Lack of Food: Never True Current Housing: I Have Housing Concerned About Future Housing: No Difficulty Paying Gas/Electric Bills: No Difficulty Paying for Meds: No Currently Unemployed: YES Education: Decline to Answer Difficulty w/ Childcare or Family Care: No Living arrangements: with family Occupation/Education: retired Gender identity (if verbalized by the patient): Female Sexual Orientation (if Verbalized by the Patient): Straight or Heterosexual Spiritual care concerns: No Exam Narrative: GENERAL: well-nourished, and in no acute distress. HEAD: Normocephalic, atraumatic. EYES: PERRLA and EOMI. ENT: Nares clear, no rhinorrhea or epistaxis. Mucous membranes moist. NECK: Supple. No adenopathy or masses. No carotid bruits or JVD CHEST: Clear to diminished to auscultation. Appears slightly short of zo
[2024-03-22 22:45] LABS: Alanine Aminotransferase 18 U/L (6-35); Albumin Level 4.4 g/dL (3.5-5.1); Alkaline Phosphatase 60 U/L (38-126); Anion Gap 8 mmol/L (4-12); Aspartate Amino Transferase 26 U/L (14-36); Bilirubin,Total 0.7 mg/dL (0.2-1.3); Blood Urea Nitrogen 15 mg/dL (7-17); Calcium 8.8 mg/dL (8.4-10.2); Carbon Dioxide 27 mmol/L (22-30); Chloride 93 mmol/L (98-107); Estimated CRCL calculation 52 ml/min; Estimated Glomerular Filt Rate > 60; Glucose 106 mg/dL (65-110); Potassium 4.2 mmol/L (3.4-5.0); Sodium 128 mmol/L (137-145)
[2024-03-22] MEDS: IPRATROPIUM 0.5 MG/ALBUTEROL SULFATE 2.5 MG AMPUL.NEB 3 ML INHALATION (22:45)
[2024-03-22 22:53] LABS: Magnesium 1.7 mg/dL (1.6-2.3)
[2024-03-22] MEDS: dexAMETHasone SOD PHOS INJ 10 MG/ML 1 ML VIAL IV PUSH (22:54)
[2024-03-22] MEDS: SODIUM CHLORIDE 0.9% IV 1,000 ML 999 ML IV CONT (22:54)
[2024-03-22 23:06] LABS: Troponin I 0.028 ng/mL (0.000-0.034)
[2024-03-22 23:07] LABS: D Dimer 0.38 ug/mL (<0.48)
[2024-03-22 23:25] LABS: Influenza A QL RT-PCR Negative (Negative); Influenza B QL RT-PCR Negative (Negative); RSV RNA, RT-PCR Negative (Negative); SARS-CoV-2 RNA PCR Negative (Negative)
--- NOTE | 2024-03-22 23:32 | PC.NURSE ---
Addendum entered by Paresh Chavez RN 03/22/24 23:34: No additional orders at this time. Original Note: Pt called to nursing station stating something is wrong with my . This RN and EDP Janice went to bedside to assess pt. Pt shaking as if she was having chills. VS stable, no fever. Pt calmed down and shaking has now stopped.
[2024-03-22 23:44] LABS: Alveolar/Arterial O2 Gradient 40.1 mmHg; Base Excess ABG -1.8 mEq/l (+/-2.0); Fractional Inspired Oxygen 24 %; HCO3 ABG 23.7 mEq/l (22.0-26.0); Oxygen Content ABG 17.3 %vol (16.0-22.0); Oxygen Saturation ABG 95.3 % (95.0-100.0); PCO2 ABG 43.1 mmHg (35.0-45.0); PO2 ABG 79.7 mmHg (80.0-100.0); PO2 FiO2 Ratio Arterial Blood 3.32 %; Total Hemoglobin 12.9 g/dL (12.0-18.0); pH ABG 7.358 (7.350-7.450)
[2024-03-22 23:45] LABS: Device NASAL CANNULA; Modified Allen's Test Pass; Site Drawn RIGHT RADIAL
[2024-03-23] VITALS (20 sets, daily range): BP systolic 102–159; BP diastolic 58–77; PULSE 75–110; RESP 14–20; TEMP 36.4–37.5; O2SAT 93–100; BMI 22.8
[2024-03-23 00:34] LABS: Add Urine Microscopic? YES; Appearance Urine Clear (Clear); Bacteria Urine None Seen /hpf; Bilirubin Urine Negative (Negative); Blood Urine Negative (Negative); Color Urine Yellow (Yellow); Glucose Urine UA Negative (Negative); Ketones Urine Negative (Negative); Leukocyte Esterase Ur Trace LEU/UL (Negative); Nitrate Urine Negative (Negative); Non Pathogenic Casts 0-2; Protein Urine Negative (Negative); RBC Urine 0-2 /hpf (0-2); Specific Grav Ur 1.004 (1.001-1.035); Squamous Epithelial Cell Urine None Seen /hpf (Few); Urobilinogen Urine 0.2 mg/dL (<2.0); WBC Urine 0-5 /hpf (0-3); pH Urine 5.5 (5.0-9.0)
[2024-03-23 01:04] LABS: NT Pro B Type Natriuretic Pept 315 pg/mL (19.9-100)
--- NOTE | 2024-03-23 02:20 | ADMGEN ---
This patient, Felicitas Mcgovern, was admitted to 2 Medical Room 260-01 at 0220. Patient/family oriented to hospital policies and general routines including ID bracelet, bed and alarms, visiting hours, pain management, procedures, bathroom and other care routines, personal items, smoking policy, room service/diet, and visiting hours. Information on how to activate the Rapid Response Team has been discussed. Patient/Family are encouraged to report perceived risks to care and to ask questions if they do not understand what they are told or what they should do.
[2024-03-23] MEDS: IPRATROPIUM 0.5 MG/ALBUTEROL SULFATE 2.5 MG AMPUL.NEB 3 ML INHALATION ×4 (02:39→19:52)
--- NOTE | 2024-03-23 02:47 | PM.IMHP ---
H&P: HPI History of Present Illness Date/Time: 03/23/24 02:47 Chief Complaint: Shortness of breath Narrative: 73-year-old female with past medical history of osteoporosis, anxiety, essential hypertension COPD and nocturnal hypoxia who presented to the ER from home due to worsening shortness of breath. The patient uses 2 L home O2 at night but today felt more short of breath and had to start using her oxygen during the day. She reports that she has had increased cough for a couple of days. Cough is nonproductive. She denies any chest pain. When she lays down at night she does have a sensation of palpitations and subjective shortness of breath. She denies any significant lower extremity swelling unless it is at the end of a busy day and usually but morning the swelling has improved. She reports that she has felt flushed and sweaty several x2 when she checks temperature is normal. She reports that she is usually always cold. She reports that she has been dropping her oxygen saturations down into the 70s and 80s with activity over the last 3 or 4 days. She does think that her shortness of breath with activity has been getting worse for the last couple of months. She uses her trilogy inhaler at home. She thinks that her albuterol inhaler home is likely . She does have a nebulizer machine at home but she has not used it in years. She reports that despite having decreased appetite and oral intake her clothes have actually gotten tighter. She denies any ill contacts. She usually stays at home in only goes out about once every 2 weeks to shop. Her family members come and visit once a week. Her is selective on who comes in the house because he does not want her to become ill. She reports that she became so distressed with shortness of breath when she tried to vacuum on day of presentation that she lost control liver bladder multiple times while trying to get to her bed so she could lay down to recover. She reports that she feels somewhat better since receiving nebulizer treatments in the ER. She feels as if her mucous may be moving. She has been having nasal congestion had rhinorrhea. Review of Systems Review of Systems: 12 systems were reviewed with pertinent positives and negatives per HPI. Except as documented in the HPI, all other systems were reviewed and are negative. She reports chronic constipation. She had to use an enema yesterday in order to have a bowel movement. It is not unusual for her to go 7-10 days without having a bowel movement. [facility] Past Medical History Medical History (Updated 03/23/24 @ 02:57 by Gege Lee DO) Breast cancer in female Left breast Chronic insomnia COPD (chronic obstructive pulmonary disease) Estrogen receptor negative status [ER-] History of alcoholism History of nicotine use Mixed hyperlipidemia Osteoporosis Postmenopausal Psychophysiological insomnia Pulmonary nodules Surgical History Surgical History (Updated 03/23/24 @ 07:47 by Gege Lee DO) H/O dilation and curettage H/O tubal ligation History of cholecystectomy History of lumpectomy of right breast Benign disease History of partial mastectomy of left breast (2018) Breast cancer treated with radiation and chemotherapy S/P cataract surgery Family History Family History Father Patient's father is Family history of emphysema, Onset Age: 66 Mother Patient's mother is Liver cancer Other Breast cancer Sibling Acute myocardial infarction Social History Social History (Updated 03/23/24 @ 07:43 by Gege Lee DO) Social History: She and her have been for 57 years. They raised 2 daughters. She used to smoke 2 6 packs of cigarettes per day for 50 years but quit in 2012. She reports that she used to drink 4-5 cans of beer a night but also quit drinking alcohol when she was
[2024-03-23 04:44] LABS: Anion Gap 11 mmol/L (4-12); Blood Urea Nitrogen 12 mg/dL (7-17); Calcium 8.9 mg/dL (8.4-10.2); Carbon Dioxide 26 mmol/L (22-30); Chloride 97 mmol/L (98-107); Estimated CRCL calculation 52 ml/min; Estimated Glomerular Filt Rate > 60; Glucose 180 mg/dL (65-110); Sodium 134 mmol/L (137-145)
[2024-03-23 06:26] LABS: Hematocrit 39.6 % (37.0-47.0); Hemoglobin 13.2 g/dL (12.0-15.0); Mean Corpuscular HGB Conc 33.3 g/dl (32-36); Mean Corpuscular Hemoglobin 31.9 pg (26-34); Mean Corpuscular Volume 95.7 fl (80-100); Mean Platelet Volume 9.4 fl (7.4-10.4); Platelet Count Result 364 k/mm3 (150-375); Red Blood Count 4.14 M/mm3 (4.2-5.4); Red Cell Distribution Width 13.3 % (11.5-14.5); White Blood Count 7.3 K/mm3 (4.5-10.0)
[2024-03-23 07:17] LABS: Thyroid Stimulating Hormone Reflex 0.985 uIU/mL (0.465-4.68)
[2024-03-23 08:30] LABS: Creatinine Urine 21.8 mg/dL; Sodium Urine Random 35 meq/L
[2024-03-23] MEDS: PRAVASTATIN SODIUM 20 MG TABLET PO (09:32)
[2024-03-23] MEDS: atenoloL 25 MG TABLET PO (09:32)
[2024-03-23] MEDS: LOSARTAN POTASSIUM 25 MG TABLET PO (09:32)
[2024-03-23] MEDS: ENOXAPARIN 40 MG/0.4 ML SYRINGE SUB-Q (09:33)
[2024-03-23] MEDS: AZITHROMYCIN 250 MG TABLET 500 MG PO (09:33)
--- NOTE | 2024-03-23 10:40 | PM.EVENT ---
Event Note Event Note Event Note: Patient was seen and assessed by previous provider same day. Followed up with patient this morning still reporting shortness of breath and noticeable dyspnea even with conversation. Patient states she did quit smoking a few years ago wears oxygen at night however had to wear her oxygen all day prior. Patient states she was unable to relieve her symptoms with her albuterol inhaler and increasing oxygen. Patient admitted to the medical unit for COPD exacerbation started patient on steroids, azithromycin, and DuoNebs. Patient was mildly hypertensive and tachycardic increase her losartan to 50 mg daily. Labs unremarkable except for blood sugar of 180 likely secondary to steroids no history of diabetes. Patient does wear home oxygen 2 L she currently wears at night. Will continue admission on the medical unit and continue with current treatment plan.
[2024-03-23] MEDS: FLUTICASONE/UMECLIDIN/VILANTER 100-62.5-25 MCG ELLIPTA 1 PUFF INHALATION (11:37)
[2024-03-23] MEDS: HYDROcodone/acetaminophen (*CRX) 5-325 MG TABLET 1 TAB PO (12:13)
[2024-03-23] MEDS: methylPREDNISolone SOD SUCC 125 MG VIAL 60 MG IV PUSH ×2 (13:16→21:35)
[2024-03-23] MEDS: guaiFENesin 12 HR 600 MG TABCR PO (20:33)
[2024-03-23] MEDS: LORATADINE 10 MG TABLET PO (20:34)
[2024-03-23] MEDS: traZODone HCL 25 MG TABLET PO (20:34)
[2024-03-24] VITALS (8 sets, daily range): BP systolic 131–135; BP diastolic 65–78; PULSE 88–94; RESP 16–20; TEMP 36.4; O2SAT 98–99
--- NOTE | 2024-03-24 | ECHO_ITS ---
Patient Info Name: Felicitas Mcgovern Age: 73 years : 1950 Gender: Female Ht: 64 in Wt: 132 lbs BSA: 1.65 m2 HR: 89 bpm BP: 110 / 58 mmHg Heart Rhythm: Sinus Rhythm Technical Quality: Fair Exam Date: 03/24/2024 10:32 AM Exam Location: Echo Lab Patient Status: Outpatient Admit Date: 03/23/2024 Staff Ordering Physician: Gege Lee DO Grip Assembler: Nathan Garcia RDCS Attending Provider: Lexi Constantino APRN Referring Physician: Jesus SHAH; Exam Type: CA echo dop color flow w con Study Info Indications - DYPNEA ON EXERTION, PALPATATION Complete two-dimensional, color flow and Doppler transthoracic echocardiogram is performed with contrast to opacify the left ventricle and to improve the deliniation of the left ventricle endocardial borders. Summary 1. Normal left and right ventricular systolic function. 2. Grade 1 diastolic noncompliance. 3. Definity contrast used to improve visualization. 4. No significant valvular dysfunction. Left Ventricle Left ventricular chamber dimension is normal. Left ventricular systolic function is normal, estimated at 60-65%. The left ventricular diastolic function is grade I diastolic dysfunction. Right Ventricle Right ventricular chamber dimension is normal. Left Atria Left atrial chamber dimension is normal. Right Atria Right atrial chamber dimension is normal. Aortic Valve The aortic valve is normal. Pulmonic Valve The pulmonic valve is not well visualized. Mitral Valve The mitral valve has normal leaflets. Tricuspid Valve The tricuspid valve leaflets are normal. Pericardium/Pleural The pericardium appears normal. Aorta The aortic root size at the sinus of Valsalva is normal. Left Ventricular Outflow Tract Name Value Normal LVOT 2D LVOT Diameter 1.79 cm LVOT Doppler LVOT Peak Gradient 4 mmHg LVOT Mean Gradient 2 mmHg LVOT VTI 22.30 cm LVOT VTI/AV VTI Ratio 0.92 LVOT Stroke Volume 56.00 ml LVOT CO 4.84 l/min LVOT CI 2.93 L/min/m2 Pulmonic Valve Name Value Normal PV Doppler PV Peak Gradient 4 mmHg Mitral Valve Name Value Normal MV Doppler MV Decel [place] 449.73 cm/s2 MV PHT 0 s MV Area (PHT) 4.07 cm2 4.00-5.00 MV Diastolic Function MV E Peak Velocity 83.75 cm/s MV A Peak Velocity 72.12 cm/s MV E/A
[2024-03-24] MEDS: IPRATROPIUM 0.5 MG/ALBUTEROL SULFATE 2.5 MG AMPUL.NEB 3 ML INHALATION ×2 (02:01→07:48)
[2024-03-24 05:01] LABS: Basophils Percent Auto 0.1 % (0.2-1.2); Hematocrit 33.2 % (37.0-47.0); Immature Granulocyte Absolute 0.08 K/mm3 (0.00-0.031); Immature Granulocyte Percent A 0.8 % (0-0.5); Lymphocytes Absolute Auto 0.68 K/mm3 (0.9-3.2); Lymphocytes Percent Auto 6.8 % (18.3-44.2); Mean Corpuscular HGB Conc 33.1 g/dl (32-36); Mean Corpuscular Hemoglobin 31.4 pg (26-34); Mean Corpuscular Volume 94.9 fl (80-100); Mean Platelet Volume 8.8 fl (7.4-10.4); Monocytes Absolute Auto 0.3 K/mm3 (0.1-0.6); Monocytes Percent Auto 3.3 % (2.6-8.5); Neutrophils Absolute Auto 8.9 K/mm3 (1.3-6.7); Platelet Count Result 270 k/mm3 (150-375); Red Cell Distribution Width 13.8 % (11.5-14.5)
[2024-03-24 05:12] LABS: Alanine Aminotransferase 18 U/L (6-35); Albumin Level 3.5 g/dL (3.5-5.1); Alkaline Phosphatase 46 U/L (38-126); Anion Gap 7 mmol/L (4-12); Aspartate Amino Transferase 21 U/L (14-36); Bilirubin,Total 0.6 mg/dL (0.2-1.3); Blood Urea Nitrogen 13 mg/dL (7-17); Calcium 8.4 mg/dL (8.4-10.2); Carbon Dioxide 26 mmol/L (22-30); Chloride 99 mmol/L (98-107); Estimated CRCL calculation 52 ml/min; Estimated Glomerular Filt Rate > 60; Glucose 171 mg/dL (65-110); Potassium 4.3 mmol/L (3.4-5.0); Sodium 132 mmol/L (137-145)
[2024-03-24] MEDS: methylPREDNISolone SOD SUCC 125 MG VIAL 60 MG IV PUSH (06:05)
[2024-03-24] MEDS: FLUTICASONE/UMECLIDIN/VILANTER 100-62.5-25 MCG ELLIPTA 1 PUFF INHALATION (07:48)
[2024-03-24] MEDS: ENOXAPARIN 40 MG/0.4 ML SYRINGE SUB-Q (08:11)
[2024-03-24] MEDS: atenoloL 25 MG TABLET PO (08:11)
[2024-03-24] MEDS: AZITHROMYCIN 250 MG TABLET 500 MG PO (08:11)
[2024-03-24] MEDS: guaiFENesin 12 HR 600 MG TABCR PO (08:12)
[2024-03-24] MEDS: PRAVASTATIN SODIUM 20 MG TABLET PO (08:12)
[2024-03-24] MEDS: LOSARTAN POTASSIUM 50 MG TABLET PO (08:12)
--- NOTE | 2024-03-24 09:56 | PM.DS ---
DS: Admitting Diagnosis Discharge Date 03/24/2024 Admitting Diagnosis COPD exacerbation DS: Discharge Diagnosis Discharge Diagnosis (1) Acute exacerbation of chronic obstructive pulmonary disease: Code(s): J44.1 - Chronic obstructive pulmonary disease with (acute) exacerbation Status: Acute (2) Dyspnea on exertion: Code(s): R06.09 - Other forms of dyspnea Status: Acute (3) Acute hyponatremia: Code(s): E87.1 - Hypo-osmolality and hyponatremia Status: Acute Plan Patient has acute on chronic hypoxic respiratory failure secondary to COPD exacerbation. Will continue patient on IV steroids. She received Decadron in the ER. Will transition to Solu-Medrol 40 mg q.8 hours. Will continue scheduled nebulizer treatments. Patient will need new scripts for both rescue inhaler and will likely need a script for nebulizer as outpatient. She does follow with pulmonology associated with [facility]. If symptoms do not improve may consider pulmonology consult. Patient also reports associated dyspnea on exertion. This could simply be due to developing hypoxia with activity and she may need supplemental oxygen but given her reports of palpitations and weight gain possible orthopnea will obtain echocardiogram to further evaluate cardiac structure and function. The patient is at high risk for pulmonary hypertension and or right-sided heart failure. The patient's chest x-ray was personally reviewed and interpreted. No evidence of infiltrate or active infection. No recent ill contacts. No recent to indicate possible infectious process. Low consider addition of azithromycin to see if this may reduce some of the inflammatory component associated with COPD. However no underlying pneumonia is suspected at this time. Patient does have a history of intermittent hyponatremia but she certainly has an acute component this time. Patient received 1 L fluid bolus in the ER. Will repeat BMP and decide on further fluid management after that time. Given patient's reported decreased oral intake she certainly could have hyper chronic hyponatremia. However there may be some component of SIADH as well. Will check urine electrolytes. DS: Summary Hospital Course Reason for hospitalization: COPD exacerbation Hospital Course: 73-year-old female with past medical history of osteoporosis, anxiety, essential hypertension COPD and nocturnal hypoxia who presented to the ER from home due to worsening shortness of breath. The patient uses 2 L home O2 at night but today felt more short of breath and had to start using her oxygen during the day. She reports that she has had increased cough for a couple of days. Cough is nonproductive. She denies any chest pain. When she lays down at night she does have a sensation of palpitations and subjective shortness of breath. She denies any significant lower extremity swelling unless it is at the end of a busy day and usually but morning the swelling has improved. She reports that she has felt flushed and sweaty several x2 when she checks temperature is normal. She reports that she is usually always cold. She reports that she has been dropping her oxygen saturations down into the 70s and 80s with activity over the last 3 or 4 days. She does think that her shortness of breath with activity has been getting worse for the last couple of months. She uses her trilogy inhaler at home. She thinks that her albuterol inhaler home is likely . She does have a nebulizer machine at home but she has not used it in years. She reports that despite having decreased appetite and oral intake her clothes have actually gotten tighter. She denies any ill contacts. She usually stays at home in only goes out about once every 2 weeks to shop. Her family members come and visit once a week. Her is selective on who comes in the house because he does not want her to become ill. She reports
[2024-03-24] MEDS: PERFLUTREN LIPID MICROSPHERES 1.5 ML VIAL DILUTED TO 10 ML TOTAL VOLUME IV PUSH (10:45)
--- NOTE | 2024-03-24 12:23 | IVDEFINITY ---
Prior to administration of IV Definity the patient was educated on the risks and benefits of the imaging enhancing agent including potential adverse side effects. The patient verbalized understanding. Allergies were verified. No exclusion criteria were identified and at least one of the following inclusion criteria were met: 1) physician request, 2) patient technically difficult to image (per the [place] [employer]ch[employer] guidelines of two or more segments not discernable within the apical view), or 3) questionable left ventricular function. ?
== END 2024-03-24 12:25 | disposition home or self-care (01) ==
LOC: ANHED 22:36 → ANH2MED 03-23 02:09
PROVIDERS: Emergency Medicine; Admitting Provider Internal Medicine; Emergency Provider Nurse Practitioner Family; PCP Family Medicine; Visit Provider Nurse Practitioner Family
DX: J44.1 Chronic obstructive pulmonary disease with (acute) exacerbation (principal); E87.1 Hypo-osmolality and hyponatremia; E78.2 Mixed hyperlipidemia; M81.0 Age-related osteoporosis without current pathological fracture; Z85.3 Personal history of malignant neoplasm of breast; Z87.891 Personal history of nicotine dependence; Z99.81 Dependence on supplemental oxygen; Z79.51 Long term (current) use of inhaled steroids
CPT/HCPCS: 36415; 36600; 71045; 80048; 80053; 81001; 82570; 82805; 83735; 83880; 84300; 84443; 84484; 85025; 85027; 85380; 87637; 93005; 94640; 96361; 96374; 96375; 96376; 99285; A9270; C8929; G0378; J1100; J1650; J2919; J7030; Q9957

== ENCOUNTER 2024-04-18 08:59 | Outpatient (CLI) | payer MEDICARE, OTHER, SELFPAY ==
--- NOTE | ~2024-04-18 | CT_ITS ---
CT Scan of the Chest without Contrast: Clinical Indication: Lung cancer screening, nicotine dependence Technique: Contiguous sections were acquired throughout the chest without intravenous contrast. Dose reduction technique was used on this scan by utilizing automated exposure control and iterative recon struction technique. The dose-length product (DLP) was 64.78 mGy-cm. COMPARISON: 04/17/2023 Findings: There is no evidence of any significant mediastinal, hilar or axillary lymphadenopathy. The mediastin al soft tissues appear normal. There is no evidence of pleural or pericardial effusion. 4 mm right apical pulmonary nodule is more prominent as compared to prior exam. 4 mm right upper lobe pulmonary nodule also slightly more prominent (axial image 42). Calcified right basilar granuloma pr esent. There are grouped nodules at the right lower lobe posteriorly measuring up to 5 mm (axial imag es 103-1 7), new from prior exam. Stable additional 3 mm right lower lobe pulmonary nodule (axial silvio ge 68). Stable subcentimeter nodules in the left upper and lower lobes. Images through the upper abdomen reveal no abnormalities. Impression: Lung RADS 2: Benign appearance. 12 month follow-up screening CT advised. Reviewed, dictated and finalized at location . Impression: Lung RADS 2: Benign appearance. 12 month follow-up screening CT advised.
== END 2024-04-18 09:00 | disposition home or self-care (01) ==
LOC: ANHIMG 09:02
PROVIDERS: PCP Family Medicine; Visit Provider Internal Medicine Pulmonary Disease
DX: Z12.2 Encounter for screening for malignant neoplasm of respiratory organs (principal); Z87.891 Personal history of nicotine dependence
CPT/HCPCS: 71271

== ENCOUNTER 2024-05-29 08:27 | Outpatient (CLI) | payer MEDICARE, OTHER, SELFPAY ==
[2024-05-29 09:02] LABS: Hematocrit 42.4 % (37.0-47.0); Hemoglobin 13.7 g/dL (12.0-15.0)
[2024-05-29 09:13] LABS: Cholesterol 201 mg/dL (0-200); HDL Direct 87 mg/dL; Triglycerides 92 mg/dL (<150)
[2024-05-29 09:19] LABS: Hemoglobin A1C 5.5 % (<5.7)
[2024-05-29 09:24] LABS: LDL Cholesterol Direct 69 mg/dL
== END 2024-05-29 08:28 | disposition home or self-care (01) ==
LOC: ANHLAB 08:29
PROVIDERS: PCP Family Medicine; Visit Provider Family Medicine
DX: E78.2 Mixed hyperlipidemia (principal); D64.9 Anemia, unspecified; R73.09 Other abnormal glucose
CPT/HCPCS: 36415; 80061; 83036; 85014; 85018

== ENCOUNTER 2024-08-21 10:50 | Outpatient (CLI) | payer MEDICARE, OTHER, SELFPAY ==
[2024-08-21 11:02] LABS: Basophils Absolute Auto 0.1 K/mm3 (0.0-0.1); Basophils Percent Auto 1.1 % (0.2-1.2); Eosinophils Absolute Auto 0.2 K/mm3 (0-0.3); Eosinophils Percent Auto 2.7 % (0-4.4); Hematocrit 41.5 % (37.0-47.0); Hemoglobin 13.5 g/dL (12.0-15.0); Immature Granulocyte Absolute 0.04 K/mm3 (0.00-0.031); Immature Granulocyte Percent A 0.5 % (0-0.5); Lymphocytes Percent Auto 13.4 % (18.3-44.2); Mean Corpuscular HGB Conc 32.5 g/dl (32-36); Mean Corpuscular Hemoglobin 31.4 pg (26-34); Mean Corpuscular Volume 96.5 fl (80-100); Mean Platelet Volume 9.1 fl (7.4-10.4); Monocytes Absolute Auto 0.7 K/mm3 (0.1-0.6); Neutrophils Absolute Auto 6.1 K/mm3 (1.3-6.7); Neutrophils Percent Auto 74.3 % (45.5-73.1); Platelet Count Result 315 k/mm3 (150-375); Red Cell Distribution Width 12.4 % (11.5-14.5); White Blood Count 8.2 K/mm3 (4.5-10.0)
[2024-08-21 12:49] LABS: Alanine Aminotransferase 14 U/L (6-35); Albumin Level 4.3 g/dL (3.5-5.1); Alkaline Phosphatase 72 U/L (38-126); Anion Gap 4 mmol/L (4-12); Aspartate Amino Transferase 23 U/L (14-36); Bilirubin,Total 0.8 mg/dL (0.2-1.3); Blood Urea Nitrogen 8 mg/dL (7-17); Calcium 9.4 mg/dL (8.4-10.2); Carbon Dioxide 32 mmol/L (22-30); Chloride 100 mmol/L (98-107); Estimated Glomerular Filt Rate > 60; Glucose 112 mg/dL (65-110); Potassium 4.2 mmol/L (3.4-5.0); Sodium 136 mmol/L (137-145)
[2024-08-22 11:48] LABS: CA 15-3 7 U/mL (<32)
== END 2024-08-21 10:51 | disposition home or self-care (01) ==
LOC: ANHLAB 10:51
PROVIDERS: PCP Family Medicine; Visit Provider Internal Medicine Hematology & Oncology
DX: C50.919 Malignant neoplasm of unspecified site of unspecified female breast (principal); Z17.421 Hormone receptor negative with human epidermal growth factor receptor 2 negative status
CPT/HCPCS: 36415; 80053; 85025; 86300

== ENCOUNTER 2024-12-05 12:26 | Outpatient (CLI) | payer MEDICARE, OTHER, SELFPAY ==
--- NOTE | ~2024-12-05 | DEXA_ITS ---
Bone Density Report Name: GONZALO JOHNSTON Age: 74 Sex: Female Ethnicity: White Date of : 1950 Indication: osteopenia; monitoring treatment; height loss; history of glucocorticoids; cancer; Referring Provider: TIMI RIVERA Study: Bone densitometry was performed. Exam Date: December 05, 2024 Accession number: [id number] Bone Density: Region BMD T-score Z-score Classification AP Spine(L1-L4) 0.865 -1.7 0.7 Osteopenia Femoral Neck (Left) 0.566 -2.5 -0.5 Osteoporosis Total Hip (Left) 0.756 -1.5 0.3 Osteopenia Femoral Neck (Right) 0.528 -2.9 -0.8 Osteoporosis Total Hip (Right) 0.750 -1.6 0.2 Osteopenia Total Hip Mean 0.753 -1.6 0.3 Osteopenia World Health Organization criteria for BMD impression classify patients as: Normal (T-score at or above -1.0), Osteopenia (T-score between -1.0 and -2.5), or Osteoporosis (T-score at or below -2.5). 10-year Fracture Risk: FRAX not reported because: Some T-score for Spine Total or Hip Total or Femoral Neck at or below -2.5 Treated for osteoporosis Previous Exams: Region Exam Age BMD T-score BMD Change BMD Change Date g/cm2 vs Baseline vs Previous AP Spine (L1-L4) 12/05/2024 74 0.865 -1.7 -0.056 (-6.1%) -0.056 (-6.1%) 03/09/2020 69 0.921 -1.1 Total Hip(Left) 12/05/2024 74 0.756 -1.5 0.041 (5.8%)* 0.041 (5.8%)* 03/09/2020 69 0.715 -1.9 Total Hip(Right) 12/05/2024 74 0.750 -1.6 0.043 (6.2%)* 0.043 (6.2%)* 03/09/2020 69 0.707 -1.9 *Denotes significance at 95% confidence level, LSC for AP Spine = 0.022 g/cm2, LSC for Total Hip = 0.027 g/cm2 Clinical Information Provided by Patient: Has taken Glucocorticoids Is being treated for osteoporosis Has used the following medications: Fosamax (i.e. alendronate), Vitamin D Has the following medical conditions: Cancer Patient maximum height was 66 Menopause Age: 49 No regular weight bearing exercise Drinks caffeinated beverages Onset of menses at age 12 Number of children 2 Impression: The patient has osteoporosis, based on the Right Femoral Neck T-score. The patient has risk factors, including: history of glucocorticoid therapy. The BMD for the AP Spine (L1-L4) decreased, changing by -6.1% since the last DXA exam. Discussion: SIGNIFICANT BONE LOSS OBSERVED. Adherence to therapy (including calcium and vitamin D intake) should be assessed. If compliance is not a factor, review management and exclusion of secondary causes of bone loss. It is important to ask patients whether they are taking their medications and to encourage continued and appropriate compliance with their osteoporosis therapies to reduce fracture risk. It is also important to review their risk factors and encourage appropriate calcium and vitamin D intakes, exercise, fall prevention and other lifestyle measures. Follow-Up: Consider a repeat BMD and Vertebral Fracture Assessment (VFA) exam in 2 years or sooner if medically necessary, to reassess this patient's status. Reported by: DAMON on 12/05/2024 1:02:00 PM. Reviewed, dictated and finalized at location ACehryl BATRES
--- OUTSIDE RECORDS SUMMARY | 2024-12-05 12:29 | XMS_ITS | Clinical Summary ---
Author Organization [facility] [address] Address [address] [place] [address] Care Team Providers Care Clinic Nurse Name Role Phone Kamala Bell MD Primary Care Provider Allergies No known active allergies Medications albuterol sulfate (PROAIR RESPICLICK) 90 mcg/actuation aerosol powdr breath activated Inhale Active alendronate (FOSAMAX) 70 mg tablet Take 70 mg by mouth once a week Active TRELEGY ELLIPTA 100-62.5-25 mcg blister with device INHALE 1 PUFF BY MOUTH EVERY DAY AT THE SAME TIME EACH DAY 1 02/04/2019 Active cholecalciferol (VITAMIN D-3) 1,000 unit tablet Take 1,000 Units by mouth daily Active traZODone (DESYREL) 50 mg tablet Take 50 mg by mouth nightly .5 tab daily Active Active Problems Problem Noted Date Diagnosed Date Pericardial effusion 02/17/2019 Breast cancer 02/08/2019 Surgical History Surgery Date Site/Laterality Comments CHOLECYSTECTOMY Medical History Medical History Date Comments COPD (chronic obstructive pulmonary disease) (HC C) Breast cancer (HCC) 02/08/2019 Family History Relation Name Status Comments Brother (Age 48) stroke Father (Age 61) emphysema Mother (Age 64) cancer Sister (Age 50) heart kathleen ck Social History Tobacco Use Types Packs/Day Years Used Date Smoking Tobacco: Former Smokeless Tobacco: Never Comments:quite 2013 Alcohol Use Standard Drinks/Week Comments Never 0 (1 standard drink = 0.6 oz pur e alcohol) AUDIT-C Answer Date Recorded Frequency of Alcohol Consumption Never 02/17/2019 Average Number of Drinks Not on file 019 Frequency of Binge Drinking Not on file 0708/2018 Personal Safety Answer Date Recorded Getting School Help Needed Not on file 11/03 Comments Unknown Sex and Gender Information Value Date Recorded Sex Assigned at Not on file Legal Sex Female 2:02 PM CDT Gender Identity Not on file Sexual Orientation Not on file Obstetrics History Last Filed Vital Signs Vital Sign Reading Time Taken Comments Blood Pressure 140/82 02/17/2019 8:58 AM CDT Pulse 67 02/17/2019 8:58 AM CDT Temperature - - Respiratory Rate - - Oxygen Saturation 98% 02/17/2019 8:58 AM CDT Inhaled Oxygen Concentration - - Weight 63 kg (139 lb) 02/17/2019 8:58 AM CDT Height 162.6 cm (5' 4 ) 02/17/2019 8:58 AM CDT Body Mass Index 23.86 02/17/2019 8:58 AM CDT Plan of Treatment Not on file Insurance MEDICARE [facility] MEDICARE MEDICARE [facility] Care Teams Clinic Nurse Relationship Specialty Start Date End Date Kamala Bell MD [address] [facility] [address] [facility] [address] [place] [id number] PCP - General Family Medicine 04/05/18
--- OUTSIDE RECORDS SUMMARY | 2024-12-05 12:29 | XMS_ITS | Referral Summary ---
Author Organization [facility] [place] [address] Address [address] [place] [address] Care Team Providers Care Weight Reduction Specialist Name Role Phone Kamala Bell MD Primary [...] Date Pericardial effusion 02/17/2019 Breast cancer 02/08/2019 Social History Tobacco Use Types Packs/Day Years Used Date Smoking Tobacco: Former Smokeless Tobacco: Never Comments:quite 2012 Alcohol Use Standard Drinks/Week Comments Never 0 (1 standard drink = 0.6 oz pur e alcohol) AUDIT-C Answer Date Recorded Frequency of Alcohol Consumption Never 02/17/2019 Average Number of Drinks Not on file 019 Frequency of Binge Drinking Not on file 08/2018 Personal Safety Answer Date Recorded Getting School Help Needed Not on file 11/03 Comments Unknown Sex and Gender Information Value Date Recorded Sex Assigned at Not on file Legal Sex Female 2:02 PM CDT Gender Identity Not on file Sexual Orientation Not on file Last Filed Vital Signs Vital Sign Reading [...] Plan of Treatment Not on file Insurance [employer] [employer] [place] Care Teams Weight Reduction Specialist Relationship Specialty Start Date End Date Kamala Bell MD [address] [place] [id number] PCP - General Family Medicine 04/05/18
--- OUTSIDE RECORDS SUMMARY | 2024-12-05 12:29 | XMS_ITS | Clinical Summary ---
Author Organization [facility] Clinical Pathology Laboratories Address [address] [place] [address] Care Team Providers Care Clinical Pharmacy Coordinator Name Role Phone Kamala Bell MD Primary Care Provider + Source Comments [facility],non-[facility] Affiliates and Associated Physician Practices is amultiple site organization consisting of ambulatory clinics and hospital sitesin [place], [place], [place] and [place]. This disclosure is being madepursuant to the Care Everywhere program and may not contain all information available regarding this patient. Last updated 18.[facility] Social History Tobacco Use Types Packs/Day Years Used Date Smoking Tobacco: Never Assessed Comments Unknown Sex and Gender Information Value Date Recorded Sex Assigned at Not on file Legal Sex Female 12:25 PM CDT Gender Identity Not on file Sexual Orientation Not on file Plan of Treatment Health Maintenance Due Date Last Done Comments BONE DENSITY TESTING 1950 COLOGUARD (AGES 45-75) - COL ON CA SCREENING 1950 COLON MONITORING 1950 COLONOSCOPY - COLON CA SCREENING 1950 CT COLONOGRAPHY - COLON CA SCREENING 1950 Colorectal Cancer Screening 1950 FIT - COLON CA SCREENING 1950 FLEX SIG - COLON CA SCREENING 1950 HEPATITIS C SCREENING 11/14/1967 DTAP/TDAP/TD VACCINES (1 - Tdap) 1968 PNEUMOCOCCAL VACCINE 50+ (1 of 1 - PCV) 11/19/1999 ZOSTER VACCINE (1 of 2) 11/19/1999 MAMMOGRAM 01/28/2021 01/28/2019, 11/21/2018 LIPID TESTING 02/18/2024 02/17/2019 COVID-19 VACCINE ( - 2023-2 5 season) 2024 DEPRESSION SCREENING 08/20/2024 Respiratory Syncytial Virus (RSV) Vaccine Pt: or over 60 yrs (1 - 1-dose 75+ series) 2024 INFLUENZA VACCINE (Season Ended) 2025 HEPATITIS B VACCINE Aged Out No longe r eligible based on patient's age to complete this topic HIB VACCINE Aged Out No longer eligi ble based on patient's age to complete this topic HPV VACCINE Aged Out No longer eligi ble based on patient's age to complete this topic MENINGOCOCCAL (Group B) VACCINE SHARED DECISION-MAKING Aged Out No longer eligible based on patient's age to complete this topic MENINGOCOCCAL GROUPS A/C/Y/W VACCINE Aged Out No longer eligible b ased on patient's age to complete this topic Insurance MEDICARE [facility] [place] [address] [facility] [place] [address] Care Teams Clinical Pharmacy Coordinator Relationship Specialty Start Date End Date Kamala Bell MD [address] [place] [address] PCP - General Family Medicine 02/17/19
--- OUTSIDE RECORDS SUMMARY | 2024-12-05 12:29 | XMS_ITS | Clinical Summary ---
Author Organization [facility] Address [address] [place] [address] Care Team Providers Care Short Story Writer Name Role Phone Kamala Bell MD Primary Care Provider +1- [phone] Allergies No known active allergies Medications traZODone (DESYREL) 50 mg tablet Take 50 mg by mouth daily at bedtime. 1 9 Active alendronate (FOSAMAX) 70 mg tablet Take 70 mg by mouth every 7 days empty stomach before other meds,with 8oz of water, stay upright 30 min . Active cholecalciferol, vitamin D3, (VITAMIN D3) 1,000 unit Take 1,000 Units by mouth daily. Active albuterol sulfate 90 mcg/actuation metered powder inhaler Take by inhalation. Active TRELEGY ELLIPTA 100-62.5-25 mcg Disk with Device INHALE 1 PUFF BY MOUTH EVERY DAY AT THE SAME TIME EACH DAY 6 9 Active ipratropium-albut lesli (DUONEB) 0.5 mg-3 mg(2.5 mg base)/3 mL Solution for Nebulization 9 Active losartan (COZAAR) 25 mg tablet Take 25 mg by mouth daily. 1 Active pravastatin (PRAVACHOL) 20 mg tablet TAKE 1 TABLET BY MOUTH ONCE DAILY 1 Active ALPRAZolam (XANAX) 0.25 mg tablet 2 Active predniSONE (DELTASONE) 10 mg tablet 2 Active ipratropium bromide (ATROVENT) 0.02 % Solution INHALE THE CONTENTS OF 1 VIAL PER NEBULIZER EVERY 6 HOURS NEEDED FOR SHORTNESS OF BREATH/WHEEZIN G 2 Active Active Problems Problem Noted Date Diagnosed Date Chronic obstructive pulmonary disease 11/24/2019 Hx antineoplastic chemotherapy 04/16/2019 Hypersensitivity 03/25/2019 Malignant neoplasm of upper- outer quadrant of left breast in female, estrogen receptor negative 02/04/2019 Triple negative malignant neoplasm of breast Resolved Problems Problem Noted Date Diagnosed Date Resolved Date Abnormal mammogram of left breast 01/22/2019 05/30/2019 Abnormal ultrasound of breast 01/22/2019 05/30/2019 Breast signs and symptoms 01/22/2019 Encounters Date Type Department Care Team Description 12/02/2024 External Device Data [facility] Provider, Abstract 10/08/2024 External Device Data [facility] Provider, Abstract 09/11/2024 External Device Data [facility] Provider, Abstract from Last 3 Months Social History Tobacco Use Types Packs/Day Years Used Date Smoking Tobacco: Former Cigarettes 2 49 1 - 06/06/2013 Smokeless Tobacco: Never Tobacco Cessation:Counseling Given: Not Answered Alcohol Use Standard Drinks/Week Comments Not Currently 0 (1 standard drink = 0.6 oz pur e alcohol) Comments No Sex and Gender Information Value Date Recorded Sex Assigned at Not on file Legal Sex Female 11:46 AM CDT Gender Identity Not on file Sexual Orientation Not on file Last Filed Vital Signs Vital Sign Reading Time Taken Comments Blood Pressure 105/69 09/05/2024 9:14 AM CPO Pulse 85 09/05/2024 9:14 AM CPO Temperature 36.3 C (97.3 F) 09/05/2024 9:14 AM CPO Respiratory Rate 15 09/05/2024 9:14 AM CPO Oxygen Saturation 94% 09/05/2024 9:14 AM CPO Inhaled Oxygen Concentration - - Weight 59 kg (130 lb) 09/05/2024 9:14 AM CPO Height 162.6 cm (5' 4 ) 01/10/2022 9:39 AM CDT Body Mass Index 22.31 01/10/2022 9:39 AM CDT Plan of Treatment Upcoming Encounters Date Type Department Care Team (Late st Contact Info) Description 05/08/2025 9:15 AM CDT Office Visit [facility] Oncology and Hematology - Jayy [address] [facility] [address] [place] [address] Jaylon Bolaños MD [address] [facility] [address] [place] [address] Health Maintenance Due Date Last Done Comments DTAP/TDAP/TD VACCINES (1 - Tdap) 1968 PNEUMOCOCCAL VACCINE 50+ YEA RS (1 of 2 - PCV) 1968 FIT-DNA Q 3 years 1994 FIT/FOBT Q 1 year 1994 Flex Sig/CT Colonography Q 5 years 1994 ZOSTER VACCINE (1 of 2) 11/19/1999 Lung Cancer Screening 06/12/2021 06/12/2020 INFLUENZA VACCINE (#1) 2024 RSV VACCINE (60+ or ) (1 - 1-dose 75+ series) 2024 COLORECTAL SCREENING 12/03/2024 12/03/2014 Colorectal Cancer Screening 12/03/2024 BREAST CANCER SCREENING 01/10/2025 01/11/20 24, 01/11/2024, 01/11/2024, Additional history exists OSTEOPOROSIS SCREENING Completed 03/09/2020, 2016 Procedures Procedure Name Priority Date/Time Associated Diagnosis Comments MAMMO SCREENING BILAT Routine 01/11/2024 11:[address] LUNG SCREENING (LDCT BASELINE OR ANNUAL) Routine 06/12/2020 Personal history of nicotine dependence from Last 3 Months or Most Recently Relevant to Health Maintenance Results * MAMMO SCREENING BILAT (01/11/2024 11:39 AM CDT) Anatomical Region Laterality Modality Breast Bilateral Mammography us Jaylon Bolaños MD MAMMO ORDERABLES Final Result * CT LUNG SCREENING (LDCT BASELINE OR ANNUAL) (06/12/2020) Anatomical Region Laterality Modality Chest Computed Tomogra phy us Alannah VANCE CT ORDERABLES Final Res ult from Last 3 Months or Most Recently Relevant to Health Maintenance Insurance MEDICARE PART A AND B [employer] Care Teams Short Story Writer Relationship Specialty Start Date End Date Kamala Bell MD PCP - General Family Practice 12/06/18
--- OUTSIDE RECORDS SUMMARY | 2024-12-05 12:29 | XMS_ITS | Encounter Summary ---
Author Organization [facility] Address [address] [place] [address] Care Team Providers Care Basic Combatant Swimmer Name Role Phone Kamala Bell MD Primary Care Provider +1- [phone] Encounter Details Date Type Department Care Team (Late st Contact Info) Description 06/24/2019 Chart Note [facility] Radiation Therapy [address] [place] [address] [place] [address] [place] [address] Social History Tobacco Use Types Packs/Day Years Used Date Smoking Tobacco: Former Cigarettes 2 49 1 - 06/06/2013 Smokeless Tobacco: Never Alcohol Use Standard Drinks/Week Comments Not Currently 0 (1 standard drink = 0.6 oz pur e alcohol) Comments No Sex and Gender Information Value Date Recorded Sex Assigned at Not on file Legal Sex Female 11:46 AM CDT Gender Identity Not on file Sexual Orientation Not on file documented as of this encounter Plan of Treatment Upcoming Encounters Date Type Department Care Team (Late st Contact Info) Description 05/08/2025 9:15 AM CDT Office Visit [facility] Oncology and Hematology - Jayy [address] [facility] [address] [place] [address] Jaylon Bolaños MD [address] [facility] [address] [place] [address] documented as of this encounter Visit Diagnoses Not on filedocumented in this encounter Care Teams Basic Combatant Swimmer Relationship Specialty Start Date End Date Kamala Bell MD PCP - General Family Practice 12/06/18 documented as of this encounter
== END 2024-12-05 12:27 | disposition home or self-care (01) ==
LOC: ANHIMG 12:26
PROVIDERS: PCP Family Medicine; Visit Provider Family Medicine
DX: M81.0 Age-related osteoporosis without current pathological fracture (principal); M85.89 Other specified disorders of bone density and structure, multiple sites; Z78.0 Asymptomatic menopausal state
CPT/HCPCS: 77080

== ENCOUNTER 2025-01-20 15:11 | Outpatient (CLI) | payer MEDICARE, OTHER, SELFPAY ==
--- NOTE | ~2025-01-20 | MM_ITS ---
EXAMINATION: MM screening [facility] BI w stephie INDICATION: Asymptomatic, referred for screening mammogram. History of Left lumpectomy with radiation therapy 2019. COMPARISON: 01/11/2024 through 07/10/2014 TECHNIQUE: Full field digital CC, MLO views were obtained of Both breasts with computer-aided detecti on to assist in interpretation of the study. FINDINGS: There are scattered areas of fibroglandular density. Posttreatment changes in Left breast are stable. No new focal dominant mass, architectural distortion, or suspicious microcalcifications are identifie d. There are no features to suggest malignancy. IMPRESSION: Stable benign mammogram. No evidence of malignancy in the breast. BI-RADS 2, BENIGN Reviewed, dictated and finalized at location B.
--- OUTSIDE RECORDS SUMMARY | 2025-01-20 15:14 | XMS_ITS | Clinical Summary ---
Author Organization [facility] Address [address] [place] [address] Care Team Providers Care Prior Authorization Technician Name Role Phone Kamala Bell MD Primary Care Provider +1- [phone] Allergies No known active allergies Medications traZODone [...] Encounters Date Type Department Care Team Description 01/07/2025 External Device Data [facility] Provider, Abstract 01/07/2025 External Device Data [facility] Provider, Abstract 12/02/2024 External Device Data [facility]STRA[facility] Provider, [...] Comments Blood Pressure 105/69 09/05/2024 9:14 AM CYBER OPS PLANNER Pulse 85 09/05/2024 9:14 AM CYBER OPS PLANNER Temperature 36.3 C (97.3 F) 09/05/2024 9:14 AM CYBER OPS PLANNER Respiratory Rate 15 09/05/2024 9:14 AM CYBER OPS PLANNER Oxygen Saturation 94% 09/05/2024 9:14 AM CYBER OPS PLANNER Inhaled Oxygen Concentration - - Weight 59 kg (130 lb) 09/05/2024 9:14 AM CYBER OPS PLANNER Height 162.6 cm (5' 4) 01/10/2022 9:39 AM CDT Body Mass Index 22.31 01/10/2022 9:39 AM CDT Plan of Treatment Upcoming Encounters Date Type Department Care Team (Late st Contact Info) Description 05/08/2025 9:15 AM CDT Office Visit [facility] Oncology and Hematology - Jayy [address] [facility] [address] [place] [address] Jaylon Bolaños MD [address] [facility] [address] [place] [address] Health Maintenance Due Date Last Done Comments DTAP/TDAP/TD VACCINES (1 - Tdap) 1968 PNEUMOCOCCAL VACCINE 50+ YEA RS (1 of 2 - PCV) 1968 Traditional Medicare (ACO) A nnual Wellness Visit 1968 FIT-DNA Q 3 years 1994 FIT/FOBT Q 1 year 1994 Flex Sig/CT Colonography Q 5 years 1994 ZOSTER VACCINE (1 of 2) 11/19/1999 Lung Cancer Screening 06/12/2021 06/12/2020 INFLUENZA VACCINE (#1) 2024 RSV VACCINE (60+ or ) (1 - 1-dose 75+ series) 2024 COLORECTAL SCREENING 12/03/2024 12/03/2014 Colorectal Cancer Screening 12/03/2024 OSTEOPOROSIS SCREENING 03/09/2025 03/09/2020, 2016 Procedures Procedure Name Priority Date/Time Associated Diagnosis Comments CT LUNG SCREENING (LDCT BASELINE OR ANNUAL) Routine 06/12/2020 Personal history of nicotine dependence from Last 3 Months or Most Recently Relevant to Health Maintenance Results * CT LUNG SCREENING (LDCT BASELINE OR ANNUAL) (06/12/2020) Anatomical Region Laterality Modality Chest Computed Tomogra phy Alannah Saucedo ANP CT ORDERABLES Final Res ult from Last 3 Months or Most Recently Relevant to Health Maintenance Insurance MEDICARE PART A AND B [facility] Care Teams Prior Authorization Technician Relationship Specialty Start Date End Date Kamala Bell MD PCP - General Family Practice 12/06/18
--- OUTSIDE RECORDS SUMMARY | 2025-01-20 15:14 | XMS_ITS | Referral Summary ---
Author Organization [facility] [address] Address [address] [place] [address] Care Team Providers Care White Metal Caster Name Role Phone Kamala Bell MD Primary [...] 8:58 AM CDT Height 162.6 cm (5' 4) 02/17/2019 8:58 AM CDT Body Mass Index 23.86 02/17/2019 8:58 AM CDT Plan of Treatment Not on file Insurance [employer] [employer] [place] [place] MEDICARE MEDICARE [employer] [place] [place] Care Teams White Metal Caster Relationship Specialty Start Date End Date Kamala Bell MD [address] [place] [id number] PCP - General Family Medicine 04/05/18
--- OUTSIDE RECORDS SUMMARY | 2025-01-20 15:14 | XMS_ITS | Clinical Summary ---
Author Organization [facility] [address] Address [address] [place] [address] Care Team Providers Care Customer Service Consultant Name Role Phone Kamala Bell MD Primary [...] of Treatment Not on file Insurance MEDICARE [facility] [employer] [place] MEDICARE MEDICARE [facility] [employer] [place] Care Teams Customer Service Consultant Relationship Specialty Start Date End Date Kamala Bell MD [address] [facility] [address] [facility] [address] [place] [id number] PCP - General Family Medicine 04/05/18
--- OUTSIDE RECORDS SUMMARY | 2025-01-20 15:14 | XMS_ITS | Encounter Summary ---
Author Organization [facility] Address [address] [place] [address] Care Team Providers Care Head Of Product Name Role Phone Kamala Bell MD Primary Care Provider +1- [phone] Encounter Details Date Type Department Care Team (Late st Contact Info) Description 06/24/2019 Chart Note [facility] Radiation Therapy [address] [place] [address] [place] [address] [place] [address] Social History Tobacco Use Types [...] Description 05/08/2025 9:15 AM CDT Office Visit [facility] Oncology and Hematology - Jayy [address] [facility] [address] [place] [address] Jaylon Bolaños MD [address] [facility] [address] [place] [address] documented as of this encounter Visit Diagnoses Not on filedocumented in this encounter Care Teams Head Of Product Relationship Specialty Start Date End Date Kamala Bell MD PCP - General Family Practice 12/06/18 documented as of this encounter
--- OUTSIDE RECORDS SUMMARY | 2025-01-20 15:14 | XMS_ITS | Clinical Summary ---
Author Organization [facility] [employer] Address [address] [facility] [place] [address] Care Team Providers Care Manager Subway Name Role Phone Kamala Bell MD Primary Care Provider + Source Comments [facility],non[facility] Affiliates and Associated Physician Practices is amultiple site organization consisting of ambulatory clinics and hospital sitesin [place], [place], [place] and [place]. This disclosure is being madepursuant to the Care Everywhere program and may not contain all information available regarding this patient. Last updated 18.[facility] [employer] Social History Tobacco Use Types Packs/Day Years [...] age to complete this topic Insurance MEDICARE [facility] [place] [place] [id number] [facility] [place] [address] Care Teams Manager Subway Relationship Specialty Start Date End Date Kamala Bell MD [address] [place] [address] PCP - General Family Medicine 02/17/19
== END 2025-01-20 15:12 | disposition home or self-care (01) ==
PROVIDERS: PCP Family Medicine; Visit Provider Internal Medicine Hematology & Oncology
DX: Z12.31 Encounter for screening mammogram for malignant neoplasm of breast (principal)
CPT/HCPCS: 77063; 77067

== ENCOUNTER 2025-04-27 10:19 | Outpatient (CLI) | payer MEDICARE, OTHER, SELFPAY ==
--- NOTE | ~2025-04-27 | CT_ITS ---
EXAMINATION:CT lung screening DATE: 04/27/2025 10:34 INDICATION: Personal history of nicotine dependence. TECHNIQUE: Computed tomography (CT) of the chest was performed without intravenous contrast. Automated exposure control and iterative reconstruction technique were employed. The dose-length product (DLP) was 39.30 mGy-cm. COMPARISON: Chest CT 04/18/2024 FINDINGS: There is severe emphysema. Calcified pulmonary nodules and calcified mediastinal lymph nodes are consistent with old granulomatous disease. There are multiple nodules in the lungs measuring up to 7 mm, some with interval worsening. For example, a 7 mm nodule in right lower lobe is new. A 6 mm nodule in right upper lobe is new. A 6 mm nodule in right lower lobe is new. No pleural effusion. The heart size is normal. There are coronary artery calcifications. No pericardial effusion. There are changes of cholecystectomy. There is severe thoracic spondylosis. IMPRESSION: 1. Lung-RADS category 4A: Suspicious. Noncontrast chest CT is recommended in 3 months. Reviewed, dictated and finalized at location E.
== END 2025-04-27 10:20 | disposition home or self-care (01) ==
LOC: MICIMG 10:20
PROVIDERS: PCP Family Medicine; Visit Provider Nurse Practitioner Family
DX: Z12.2 Encounter for screening for malignant neoplasm of respiratory organs (principal); Z87.891 Personal history of nicotine dependence; R91.8 Other nonspecific abnormal finding of lung field
CPT/HCPCS: 71271

== ENCOUNTER 2025-05-04 10:32 | Outpatient (CLI) | payer MEDICARE, OTHER, SELFPAY ==
[2025-05-04 10:47] LABS: Hematocrit 39.8 % (37.0-47.0); Hemoglobin 13.2 g/dL (12.0-15.0); Immature Granulocyte Percent A 0.3 % (0-0.5); Lymphocytes Absolute Auto 1.33 K/mm3 (0.9-3.2); Mean Corpuscular HGB Conc 33.2 g/dl (32-36); Mean Corpuscular Hemoglobin 31.3 pg (26-34); Mean Corpuscular Volume 94.3 fl (80-100); Nucleated Red Blood Cells Absolute Auto 0.000 K/mm3 (0.0-0.012); Nucleated Red Blood Cells Perc 0.0 % (0.0-0.2); Platelet Count Result 274 k/mm3 (150-375); Red Blood Count 4.22 M/mm3 (4.2-5.4); White Blood Count 6.6 K/mm3 (4.5-10.0)
--- OUTSIDE RECORDS SUMMARY | 2025-05-04 12:04 | XMS_ITS | Clinical Summary ---
Author Organization [facility] Address [address] [place] [address] Care Team Providers Care Dinkey Brakeman Name Role Phone Kamala Bell MD Primary Care Provider [phone]- [phone] Allergies No known active allergies Medications traZODone [...] Encounters Date Type Department Care Team Description 03/24/2025 External Device Data ST[facility] ABSTRACTION Provider, Abstract 03/04/2025 External Device Data [facility] ABSTRACTION Provider, Abstract 03/04/2025 External Device Data [facility] ABSTRACTION Provider, Abstract [...] Comments Blood Pressure 105/69 09/05/2024 9:14 AM MANAGER OPERATIONAL Pulse 85 09/05/2024 9:14 AM MANAGER OPERATIONAL Temperature 36.3 C (97.3 F) 09/05/2024 9:14 AM MANAGER OPERATIONAL Respiratory Rate 15 09/05/2024 9:14 AM MANAGER OPERATIONAL Oxygen Saturation 94% 09/05/2024 9:14 AM MANAGER OPERATIONAL Inhaled Oxygen Concentration - - Weight 59 kg (130 lb) 09/05/2024 9:14 AM MANAGER OPERATIONAL Height 162.6 cm (5' 4) 01/10/2022 9:39 AM CDT Body Mass Index 22.31 01/10/2022 9:39 AM CDT Plan of Treatment Upcoming Encounters Date Type Department Care Team (Late st Contact Info) Description 05/08/2025 9:15 AM CDT Office Visit [facility] Oncology and Hematology - Jayy [address] [place] [address] Jaylon Bolaños MD [address] [facility] [address] [place] [address] Health Maintenance Due Date Last Done Comments DTAP/TDAP/TD VACCINES (1 - Tdap) 1969 PNEUMOCOCCAL VACCINE 50+ YEA RS (1 of 2 - PCV) 1969 Traditional Medicare (ACO) A nnual Wellness Visit 1968 FIT-DNA Q 3 years 1994 FIT/FOBT Q 1 year 1994 Flex Sig/CT Colonography Q 5 years 1994 ZOSTER VACCINE (1 of 2) 11/19/1999 Lung Cancer Screening 06/12/2021 06/12/2020 RSV VACCINE (60+ or ) (1 - 1-dose 75+ series) 2024 COLORECTAL SCREENING 12/03/2024 12/03/2014 Colorectal Cancer Screening 12/03/2024 INFLUENZA VACCINE (#1) 2025 OSTEOPOROSIS SCREENING 12/05/2029 5, 03/09/2020, 01/08/2017 Procedures Procedure Name Priority Date/Time Associated Diagnosis Comments CT LUNG SCREENING (LDCT BASELINE OR ANNUAL) Routine 06/12/2020 Personal history of nicotine dependence from Last 3 Months or Most Recently Relevant to Health Maintenance Results * CT LUNG SCREENING (LDCT BASELINE OR ANNUAL) (06/12/2020) Anatomical Region Laterality Modality Chest Computed Tomogra phy Alannah Saucedo ANP CT ORDERABLES Fin al Result from Last 3 Months or Most Recently Relevant to Health Maintenance Insurance MEDICARE PART A AND B [place] [employer] [place] Care Teams Dinkey Brakeman Relationship Specialty Start Date End Date Kamala Bell MD PCP - General Family Practice 12/06/18
--- OUTSIDE RECORDS SUMMARY | 2025-05-04 12:04 | XMS_ITS | Encounter Summary ---
Author Organization [facility] Address [address] [place] [address] Care Team Providers Care Theater Teacher Name Role Phone Kamala Bell MD Primary Care Provider +1- [phone] Encounter Details Date Type Department Care Team (Late st Contact Info) Description 06/24/2019 Chart Note [facility] Radiation Therapy [address] [place] [address] [place] [address] [place] [address] Social History Tobacco Use Types [...] Description 05/08/2025 9:15 AM CDT Office Visit [facility] Oncology and Hematology - Jayy [address] [facility] [address] [place] [address] Jaylon Bolaños MD [address] [facility] [address] [place] [address] documented as of this encounter Visit Diagnoses Not on filedocumented in this encounter Care Teams Theater Teacher Relationship Specialty Start Date End Date Kamala Bell MD PCP - General Family Practice 12/06/18 documented as of this encounter
--- OUTSIDE RECORDS SUMMARY | 2025-05-04 12:04 | XMS_ITS | Clinical Summary ---
Author Organization [facility] Address [address] [facility] [place] [address] Care Team Providers Care Mental Health Aide Name Role Phone Kamala Bell MD Primary Care Provider + Source Comments [facility] Affiliates and Associated Physician Practices is amultiple site organization consisting of ambulatory clinics and hospital sitesin [place], [place], [place] and [place]. This disclosure is being madepursuant to the Care Everywhere program and may not contain all information available regarding this patient. Last updated 18.[facility] Social History Tobacco Use Types Packs/Day Years [...] 01/28/2021 01/28/2019, 11/21/2018 LIPID TESTING 02/18/2024 02/17/2019 DEPRESSION SCREENING 08/20/2024 Respiratory Syncytial Virus (RSV) Vaccine Pt: or over 60 yrs (1 - 1-dose 75+ series) 2024 COVID-19 VACCINE ( - 2023-2 5 season) 2025 INFLUENZA VACCINE (#1) 2025 HEPATITIS B VACCINE Aged Out No [...] Insurance MEDICARE [facility] [place] [id number] [facility] [place] [address] Care Teams Mental Health Aide Relationship Specialty Start Date End Date Kamala Bell MD [address] [place] [address] PCP - General Family Medicine 02/17/19
--- OUTSIDE RECORDS SUMMARY | 2025-05-04 12:04 | XMS_ITS | Clinical Summary ---
Author Organization [facility] [address] Address [address] [place] [address] Care Team Providers Care Clay Thrower Name Role Phone Kamala Bell MD Primary [...] Date Comments COPD (chronic obstructive pulmonary disease) Breast cancer (HCC) 02/08/2019 Family History Relation [...] Frequency of Binge Drinking Not on file 070 08/2018 Personal Safety Answer Date Recorded Getting [...] of Treatment Not on file Insurance MEDICARE [facility] [place]IC[place] Care Teams Clay Thrower Relationship Specialty Start Date End Date Kamala Bell MD [address] [facility] [address] [place] [address] PCP - General Family Medicine 04/05/18
[2025-05-04 16:42] LABS: Alanine Aminotransferase 16 U/L (6-35); Albumin Level 4.3 g/dL (3.5-5.1); Alkaline Phosphatase 67 U/L (38-126); Anion Gap 8 mmol/L (4-12); Aspartate Amino Transferase 46 U/L (14-36); Bilirubin,Total 1.2 mg/dL (0.2-1.3); Blood Urea Nitrogen 18 mg/dL (7-17); Calcium 9.6 mg/dL (8.4-10.2); Carbon Dioxide 30 mmol/L (22-30); Chloride 97 mmol/L (98-107); Estimated Glomerular Filt Rate > 60; Glucose 126 mg/dL (65-110); Potassium 4.4 mmol/L (3.4-5.0); Sodium 135 mmol/L (137-145); Total Protein 7.3 g/dL (6.3-8.2)
== END 2025-05-04 10:33 | disposition home or self-care (01) ==
PROVIDERS: PCP Family Medicine; Visit Provider Internal Medicine Hematology & Oncology
DX: C50.919 Malignant neoplasm of unspecified site of unspecified female breast (principal); Z17.421 Hormone receptor negative with human epidermal growth factor receptor 2 negative status
CPT/HCPCS: 36415; 80053; 85025; 86300